=== PATIENT | female | born 1960 | race African-American/Black ===

== ENCOUNTER 2021-02-11 12:56 | Emergency (ER) | payer MEDICAID ==
[~2021-02-11] VITALS: Ht 175.3 cm; Wt 163.3 kg
[2021-02-11 16:35] LABS: Basophils # (auto) 0.1 10 ^3/uL (0-0.2); Eosinophils # (auto) 0.1 10 ^3/uL (0-0.8); Eosinophils % (auto) 1.5 % (0.0-7.0); Hematocrit 45.2 % (36.0-46.0); Lymphocytes # (auto) 1.6 10 ^3/uL (0.4-5.4); Lymphocytes % (auto) 35.6 % (10.0-50.0); Mean Corpuscular Hemoglobin 28.8 pg (28.0-32.0); Mean Corpuscular Hgb Conc. 33.1 g/dL (32.0-36.0); Mean Corpuscular Volume 86.8 fL (80.0-100.0); Monocytes # (auto) 0.4 10 ^3/uL (0-1.3); Monocytes % (auto) 8.7 % (0.0-12.0); Neutrophils # (auto) 2.3 10 ^3/uL (1.6-8.6); Neutrophils % (auto) 52.2 % (37.0-80.0); Nucleated Red Blood Cells % 0.2 %; Red Blood Cells 5.21 10^6/uL (4.0-5.20); Red Cell Distribution Width 14.3 % (11.8-14.3); White Blood Cell 4.4 10^3/uL (4.4-10.8)
[2021-02-11 17:12] LABS: Albumin 3.3 g/dL (3.4-5.0); Calcium 9.6 mg/dL (8.5-10.1); Potassium 3.5 mmol/L (3.5-5.1)
[2021-02-11 17:17] LABS: BUN/Creatinine Ratio 18.4; Bilirubin, Total 0.7 mg/dL (0.2-1.0)
[2021-02-11] MEDS ORDERED: SODIUM CHLORIDE 0.9% 1,000 ML IV ONE (17:30)
[2021-02-11] MEDS ORDERED: KETOROLAC TROMETH 30 MG/ML 1ML VIAL IV ONE (17:30)
[2021-02-11 18:32] LABS: Magnesium 1.9 mg/dL (1.6-2.6); Uric Acid 10.4 mg/dL (2.6-6.0)
[2021-02-11] MEDS ORDERED: COLCHICINE 0.6 MG CAP PO ONE (19:45)
[2021-02-11] MEDS ORDERED: DexAMETHasone SOD PHOS 10MG/1ML VIAL INJ IV ONE (19:45)
[2021-02-11 21:23] VITALS: BP 123/57
== END 2021-02-11 21:45 | disposition home or self-care (01) ==
LOC: EDBD 12:56 → ER 12:56
DX: M10.9 Gout, unspecified (principal); E79.0 Hyperuricemia without signs of inflammatory arthritis and tophaceous disease; E66.01 Morbid (severe) obesity due to excess calories; I10 Essential (primary) hypertension; E11.9 Type 2 diabetes mellitus without complications; E78.5 Hyperlipidemia, unspecified; I48.91 Unspecified atrial fibrillation; F17.210 Nicotine dependence, cigarettes, uncomplicated; Z88.8 Allergy status to other drugs, medicaments and biological substances; Z68.43 Body mass index [BMI] 50.0-59.9, adult
CPT/HCPCS: 36415; 71045; 80053; 83735; 84550; 85025; 93971; 96361; 96374; 96375; 99285; J1100; J1885; J7030

== ENCOUNTER 2021-03-17 11:13 | Emergency (ER) | payer MEDICAID ==
[~2021-03-17] VITALS: Ht 175.3 cm; Wt 163.3 kg
[2021-03-17 11:58] VITALS: BP 117/58
[2021-03-17] MEDS ORDERED: methylPREDNISolone SOD SUCC 125 MG/2 ML VL IM ONE (16:00)
[2021-03-17] MEDS ORDERED: COLCHICINE 0.6 MG CAP PO ONE (16:00)
== END 2021-03-17 16:28 | disposition home or self-care (01) ==
LOC: ER 11:13
DX: M10.9 Gout, unspecified (principal); E66.01 Morbid (severe) obesity due to excess calories; I48.91 Unspecified atrial fibrillation; J45.909 Unspecified asthma, uncomplicated; E11.9 Type 2 diabetes mellitus without complications; E78.5 Hyperlipidemia, unspecified; I10 Essential (primary) hypertension; F17.210 Nicotine dependence, cigarettes, uncomplicated; Z88.8 Allergy status to other drugs, medicaments and biological substances; Z68.43 Body mass index [BMI] 50.0-59.9, adult
CPT/HCPCS: 36415; 84550; 96372; 99283; J2930

== ENCOUNTER 2021-04-26 17:02 | Inpatient (IN) | payer MEDICAID ==
[~2021-04-26] VITALS: Ht 175.3 cm; Wt 170.6 kg
[2021-04-26 18:29] LABS: Basophils # (auto) 0.1 10 ^3/uL (0-0.2); Eosinophils # (auto) 0.1 10 ^3/uL (0-0.8); Eosinophils % (auto) 1.6 % (0.0-7.0); Hematocrit 40.1 % (36.0-46.0); Hemoglobin 12.4 g/dL (12.2-16.2); Lymphocytes # (auto) 1.4 10 ^3/uL (0.4-5.4); Lymphocytes % (auto) 28.4 % (10.0-50.0); Mean Corpuscular Hemoglobin 27.2 pg (28.0-32.0); Mean Corpuscular Volume 87.7 fL (80.0-100.0); Monocytes # (auto) 0.5 10 ^3/uL (0-1.3); Monocytes % (auto) 9.4 % (0.0-12.0); Neutrophils # (auto) 2.8 10 ^3/uL (1.6-8.6); Neutrophils % (auto) 58.6 % (37.0-80.0); Nucleated Red Blood Cells % 0.2 %; Red Blood Cells 4.58 10^6/uL (4.0-5.20); Red Cell Distribution Width 15.8 % (11.8-14.3); White Blood Cell 4.8 10^3/uL (4.4-10.8)
[2021-04-26 18:43] LABS: Albumin 3.2 g/dL (3.4-5.0); Calcium 8.7 mg/dL (8.5-10.1); Potassium 3.7 mmol/L (3.5-5.1)
[2021-04-26 18:50] LABS: BUN/Creatinine Ratio 16.2; Bilirubin, Total 0.4 mg/dL (0.2-1.0); Total Protein 7.5 g/dL (6.4-8.2)
[2021-04-27] MEDS ORDERED: FUROSEMIDE 40 MG/4 ML VIAL IV ONE (02:00)
[2021-04-27 07:34] LABS: Basophils # (auto) 0.1 10 ^3/uL (0-0.2); Basophils % (auto) 1.2 % (0.0-2.0); Eosinophils # (auto) 0.1 10 ^3/uL (0-0.8); Eosinophils % (auto) 1.8 % (0.0-7.0); Hemoglobin 12.4 g/dL (12.2-16.2); Lymphocytes # (auto) 1.1 10 ^3/uL (0.4-5.4); Lymphocytes % (auto) 21.4 % (10.0-50.0); Mean Corpuscular Hemoglobin 27.7 pg (28.0-32.0); Mean Corpuscular Hgb Conc. 31.8 g/dL (32.0-36.0); Monocytes # (auto) 0.6 10 ^3/uL (0-1.3); Monocytes % (auto) 12.4 % (0.0-12.0); Neutrophils # (auto) 3.3 10 ^3/uL (1.6-8.6); Neutrophils % (auto) 63.2 % (37.0-80.0); Nucleated Red Blood Cells % 0.4 %; Red Blood Cells 4.49 10^6/uL (4.0-5.20); Red Cell Distribution Width 16.5 % (11.8-14.3); White Blood Cell 5.2 10^3/uL (4.4-10.8)
[2021-04-27 07:42] LABS: BUN/Creatinine Ratio 16.9; Potassium 3.6 mmol/L (3.5-5.1)
[2021-04-27] MEDS ORDERED: ACETAMINOPHEN 500 MG TAB PO ONE (08:15)
[2021-04-27] MEDS ORDERED: SIMV-8 PO (08:55)
[2021-04-27] MEDS ORDERED: CARV12.544 PO (08:55)
[2021-04-27] MEDS ORDERED: INDO50CA82 PO (08:55)
[2021-04-27] MEDS ORDERED: ALLO100T PO (08:55)
[2021-04-27] MEDS ORDERED: CLOP75TA28 PO (08:55)
[2021-04-27] MEDS: CLOPIDOGREL BISULFATE 75 MG TAB PO SCH (09:06)
[2021-04-27] MEDS: CARVEDILOL 12.5 MG TAB PO SCH ×2 (09:06→21:23)
[2021-04-27] MEDS: LISINOPRIL 10 MG TAB PO SCH (09:06)
[2021-04-27] MEDS: ALLOPURINOL 100 MG TAB PO SCH (09:39)
[2021-04-27] MEDS ORDERED: MORPHINE SULFATE INJECTION 2 MG/ML SYRG IV PRN (10:45)
[2021-04-27] MEDS: AZITHROMYCIN 500MG/ 250ML 250 ML IV SCH (10:45)
[2021-04-27] MEDS ORDERED: ACETAMINOPHEN 325 MG TAB PO PRN (10:45)
[2021-04-27] MEDS ORDERED: ONDANSETRON HCL 4 MG/2 ML VIAL IV PRN (10:45)
[2021-04-27] MEDS: cefTRIAXone 1GM/50ML D5W 50 ML IV SCH (11:11)
[2021-04-27] MEDS: ENOXAPARIN SOD 40 MG/0.4 ML SYRINGE SC SCH (11:13)
[2021-04-27] MEDS ORDERED: FUROSEMIDE 20 MG/2 ML VIAL IV ONE (11:15)
[2021-04-27] MEDS: HYDROcodone-ACET 5/325MG TAB PO PRN (11:22)
[2021-04-27] MEDS ORDERED: hydrALAZINE HCL 20 MG/ML VL IV PRN (11:30)
[2021-04-27 18:41] VITALS: BP 166/97
[2021-04-27 20:00] VITALS: BP 142/76
[2021-04-27 20:30] VITALS: BP 142/76
[2021-04-27] MEDS ORDERED: ATORVASTATIN 20 MG TAB PO SCH (22:00)
[2021-04-28] MEDS ORDERED: PROMETHAZINE W/CODEINE 5 ML ORAL SYRUP PO PRN (01:00)
[2021-04-28 05:38] VITALS: BP 145/74
[2021-04-28 08:50] VITALS: BP 153/81
[2021-04-28 09:52] LABS: Basophils # (auto) 0.1 10 ^3/uL (0-0.2); Basophils % (auto) 1.5 % (0.0-2.0); Eosinophils # (auto) 0.1 10 ^3/uL (0-0.8); Eosinophils % (auto) 2.2 % (0.0-7.0); Hematocrit 37.7 % (36.0-46.0); Hemoglobin 11.9 g/dL (12.2-16.2); Lymphocytes # (auto) 1.2 10 ^3/uL (0.4-5.4); Lymphocytes % (auto) 26.6 % (10.0-50.0); Mean Corpuscular Hemoglobin 27.8 pg (28.0-32.0); Mean Corpuscular Hgb Conc. 31.6 g/dL (32.0-36.0); Mean Corpuscular Volume 87.9 fL (80.0-100.0); Monocytes # (auto) 0.6 10 ^3/uL (0-1.3); Monocytes % (auto) 12.6 % (0.0-12.0); Neutrophils # (auto) 2.6 10 ^3/uL (1.6-8.6); Neutrophils % (auto) 57.1 % (37.0-80.0); Nucleated Red Blood Cells % 0.1 %; Red Blood Cells 4.28 10^6/uL (4.0-5.20); Red Cell Distribution Width 16.3 % (11.8-14.3); White Blood Cell 4.6 10^3/uL (4.4-10.8)
[2021-04-28] MEDS: CARVEDILOL 12.5 MG TAB PO SCH ×2 (10:00→23:17)
[2021-04-28] MEDS: AZITHROMYCIN 500MG/ 250ML 250 ML IV SCH (10:02)
[2021-04-28] MEDS: CLOPIDOGREL BISULFATE 75 MG TAB PO SCH (10:02)
[2021-04-28] MEDS: cefTRIAXone 1GM/50ML D5W 50 ML IV SCH (10:02)
[2021-04-28] MEDS: ALLOPURINOL 100 MG TAB PO SCH ×2 (10:03→23:15)
[2021-04-28] MEDS: LISINOPRIL 10 MG TAB PO SCH (10:03)
[2021-04-28] MEDS: ENOXAPARIN SOD 40 MG/0.4 ML SYRINGE SC SCH (10:03)
[2021-04-28 10:08] LABS: Albumin 3.1 g/dL (3.4-5.0); Calcium 8.5 mg/dL (8.5-10.1); Magnesium 2.5 mg/dL (1.6-2.6); Potassium 3.6 mmol/L (3.5-5.1)
[2021-04-28 10:11] LABS: BUN/Creatinine Ratio 19.7; Bilirubin, Total 0.5 mg/dL (0.2-1.0); Total Protein 6.8 g/dL (6.4-8.2)
[2021-04-28 12:50] VITALS: BP 157/90
[2021-04-28 14:40] VITALS: BP 124/64
[2021-04-28] MEDS ORDERED: FUROSEMIDE 40 MG/4 ML VIAL IV SCH (18:00)
[2021-04-28 20:00] VITALS: BP 147/76
[2021-04-28 22:00] VITALS: BP 147/76
[2021-04-29] MEDS: HYDROcodone-ACET 5/325MG TAB PO PRN ×2 (00:12→11:29)
[2021-04-29 05:00] VITALS: BP 134/91
[2021-04-29] MEDS: ALLOPURINOL 100 MG TAB PO SCH ×2 (06:36→15:07)
[2021-04-29 09:00] VITALS: BP 112/71
[2021-04-29] MEDS: cefTRIAXone 1GM/50ML D5W 50 ML IV SCH (09:28)
[2021-04-29] MEDS: CLOPIDOGREL BISULFATE 75 MG TAB PO SCH (09:29)
[2021-04-29] MEDS: CARVEDILOL 12.5 MG TAB PO SCH (09:29)
[2021-04-29] MEDS: ENOXAPARIN SOD 40 MG/0.4 ML SYRINGE SC SCH (09:30)
[2021-04-29] MEDS: LISINOPRIL 10 MG TAB PO SCH (09:30)
[2021-04-29] MEDS: AZITHROMYCIN 500MG/ 250ML 250 ML IV SCH (12:28)
[2021-04-29 13:00] VITALS: BP 149/97
== END 2021-04-29 17:00 | disposition home or self-care (01) | DRG 139 ==
LOC: ER 17:02 → TELE-WESTW 04-27 04:53
PROVIDERS: ADMIT Nurse Practitioner Family; ATTEND Nurse Practitioner Family
DX: J18.9 Pneumonia, unspecified organism (principal); J96.01 Acute respiratory failure with hypoxia; I50.23 Acute on chronic systolic (congestive) heart failure; I42.9 Cardiomyopathy, unspecified; Z68.43 Body mass index [BMI] 50.0-59.9, adult; E66.2 Morbid (severe) obesity with alveolar hypoventilation; J44.0 Chronic obstructive pulmonary disease with (acute) lower respiratory infection; I11.0 Hypertensive heart disease with heart failure; E11.9 Type 2 diabetes mellitus without complications; E04.1 Nontoxic single thyroid nodule; E78.5 Hyperlipidemia, unspecified; F17.210 Nicotine dependence, cigarettes, uncomplicated; H54.62 Unqualified visual loss, left eye, normal vision right eye; I48.91 Unspecified atrial fibrillation; M10.9 Gout, unspecified; Z20.822 Contact with and (suspected) exposure to COVID-19; Z79.899 Other long term (current) drug therapy; Z86.16 Personal history of COVID-19; Z91.19 Patient's noncompliance with other medical treatment and regimen; Z71.6 Tobacco abuse counseling
CPT/HCPCS: 36415; 71045; 71250; 80048; 80053; 83735; 83880; 84484; 85025; 87426; 93005; 93306; 96365; 96368; 96372; 96375; 96376; G0378; J0696; J2405

== ENCOUNTER 2021-05-12 12:14 | Inpatient (IN) | payer MEDICAID ==
[~2021-05-12] VITALS: Ht 175.3 cm; Wt 163.9 kg
[~2021-05-12 12:14] MED LIST: ALLO100T PO; CARV12.544 PO; CLOP75TA28 PO; INDO50CA82 PO; SIMV-8 PO
[2021-05-12 14:05] LABS: Basophils # (auto) 0.1 10 ^3/uL (0-0.2); Basophils % (auto) 1.5 % (0.0-2.0); Eosinophils # (auto) 0.1 10 ^3/uL (0-0.8); Eosinophils % (auto) 2.3 % (0.0-7.0); Hematocrit 41.1 % (36.0-46.0); Lymphocytes # (auto) 1.3 10 ^3/uL (0.4-5.4); Lymphocytes % (auto) 27.7 % (10.0-50.0); Mean Corpuscular Hemoglobin 27.8 pg (28.0-32.0); Mean Corpuscular Hgb Conc. 31.6 g/dL (32.0-36.0); Mean Corpuscular Volume 87.9 fL (80.0-100.0); Monocytes # (auto) 0.5 10 ^3/uL (0-1.3); Neutrophils # (auto) 2.8 10 ^3/uL (1.6-8.6); Neutrophils % (auto) 57.5 % (37.0-80.0); Nucleated Red Blood Cells % 0.1 %; Red Blood Cells 4.68 10^6/uL (4.0-5.20); Red Cell Distribution Width 17.2 % (11.8-14.3); White Blood Cell 4.8 10^3/uL (4.4-10.8)
[2021-05-12 14:23] LABS: Albumin 3.3 g/dL (3.4-5.0); Calcium 8.6 mg/dL (8.5-10.1); Potassium 3.9 mmol/L (3.5-5.1)
[2021-05-12 14:31] LABS: BUN/Creatinine Ratio 16.9; Bilirubin, Total 0.5 mg/dL (0.2-1.0); CRP High Sensitivity 1.18 mg/dL (< 0.3); Total Protein 7.3 g/dL (6.4-8.2)
[2021-05-12] MEDS ORDERED: FUROSEMIDE 40 MG/4 ML VIAL IV ONE (16:30)
[2021-05-12] MEDS ORDERED: MORPHINE SULFATE INJECTION 2 MG/ML SYRG IV PRN (17:15)
[2021-05-12] MEDS ORDERED: NITROGLYCERIN 0.4 MG SL TAB SL PRN (17:15)
[2021-05-12] MEDS ORDERED: CARVEDILOL 12.5 MG TAB PO ONE (22:15)
[2021-05-12] MEDS ORDERED: ALLOPURINOL 100 MG TAB PO ONE (22:15)
[2021-05-12] MEDS ORDERED: LISINOPRIL 10 MG TAB PO ONE (22:15)
[2021-05-12] MEDS ORDERED: INDOMETHACIN 25 MG CAP PO ONE (22:15)
[2021-05-12] MEDS ORDERED: ONDANSETRON HCL 4 MG/2 ML VIAL ONE (22:35)
[2021-05-12] MEDS ORDERED: ONDANSETRON HCL 4 MG/2 ML VIAL IV ONE (23:00)
[2021-05-13] MEDS ORDERED: cefTRIAXone 1GM/50ML D5W 50 ML IV ONE (04:00)
[2021-05-13] MEDS ORDERED: FAMOTIDINE (10MG/ML) 2ML VL IV ONE (04:00)
[2021-05-13] MEDS ORDERED: FUROSEMIDE 40 MG/4 ML VIAL IV ONE (04:00)
[2021-05-13] MEDS ORDERED: BUDESONIDE (INHALATION) 0.5 MG/2 ML NEB NEB ONE (04:00)
[2021-05-13] MEDS ORDERED: IPRATROPIUM BROM 0.5 MG/2.5ML INH SOL NEB ONE (04:00)
[2021-05-13] MEDS ORDERED: AZITHROMYCIN 500MG/ 250ML 250 ML IV ONE (04:00)
[2021-05-13] MEDS ORDERED: METOPROLOL SUCCINATE XL 50 MG TAB PO ONE (04:00)
[2021-05-13] MEDS ORDERED: hydrALAZINE HCL 20 MG/ML VL IV PRN (04:00)
[2021-05-13] MEDS ORDERED: BENAZEPRIL HCL 10 MG TAB PO ONE (04:00)
[2021-05-13] MEDS ORDERED: ALBUTEROL SULF 2.5 MG/0.5ML(0.5%) NEB SOLN NEB ONE (04:00)
[2021-05-13] MEDS ORDERED: MORPHINE SULFATE INJECTION 2 MG/ML SYRG IV PRN (04:15)
[2021-05-13] MEDS ORDERED: DOCUSATE SOD 100 MG CAP PO PRN (04:15)
[2021-05-13] MEDS ORDERED: LORazepam 0.5 MG TAB PO PRN (04:15)
[2021-05-13] MEDS ORDERED: ONDANSETRON HCL 4 MG/2 ML VIAL IV PRN (04:15)
[2021-05-13] MEDS ORDERED: NITROGLYCERIN 0.4 MG SL TAB SL PRN (04:15)
[2021-05-13] MEDS: methylPREDNISolone SOD SUCC 40 MG/ML VL IV SCH ×3 (06:26→23:32)
[2021-05-13] MEDS: IPRATROPIUM BROM 0.5 MG/2.5ML INH SOL NEB SCH ×4 (10:00→23:22)
[2021-05-13 10:46] LABS: Basophils # (auto) 0.1 10 ^3/uL (0-0.2); Eosinophils # (auto) 0 10 ^3/uL (0-0.8); Eosinophils % (auto) 0.7 % (0.0-7.0); Hematocrit 42.4 % (36.0-46.0); Hemoglobin 13.6 g/dL (12.2-16.2); Lymphocytes # (auto) 0.9 10 ^3/uL (0.4-5.4); Lymphocytes % (auto) 17.4 % (10.0-50.0); Mean Corpuscular Hemoglobin 28.2 pg (28.0-32.0); Mean Corpuscular Volume 88.2 fL (80.0-100.0); Monocytes # (auto) 0.2 10 ^3/uL (0-1.3); Monocytes % (auto) 3.9 % (0.0-12.0); Neutrophils # (auto) 4.2 10 ^3/uL (1.6-8.6); Nucleated Red Blood Cells % 0.1 %; Red Cell Distribution Width 17.8 % (11.8-14.3); White Blood Cell 5.5 10^3/uL (4.4-10.8)
[2021-05-13] MEDS: BUDESONIDE (INHALATION) 0.5 MG/2 ML NEB NEB SCH ×2 (10:52→18:33)
[2021-05-13 11:06] LABS: Albumin 3.6 g/dL (3.4-5.0); Calcium 8.9 mg/dL (8.5-10.1); Magnesium 2.7 mg/dL (1.6-2.6); Potassium 4.5 mmol/L (3.5-5.1)
[2021-05-13 11:10] LABS: BUN/Creatinine Ratio 19.3; Bilirubin, Total 0.5 mg/dL (0.2-1.0); Phosphorus 4.3 mg/dL (2.5-4.90); Total Protein 7.9 g/dL (6.4-8.2)
[2021-05-13] MEDS: POTASSIUM CHL 20 Meq TABLET PO SCH ×2 (14:19→23:33)
[2021-05-13] MEDS: ALLOPURINOL 100 MG TAB PO SCH (14:19)
[2021-05-13] MEDS: ASPirin 81 mg TAB PO SCH (14:20)
[2021-05-13] MEDS: ENOXAPARIN SOD 40 MG/0.4 ML SYRINGE SC SCH (14:21)
[2021-05-13 15:00] VITALS: BP 145/106
[2021-05-13 17:22] VITALS: BP 145/106
[2021-05-13] MEDS: FUROSEMIDE 40 MG/4 ML VIAL IV SCH (18:00)
[2021-05-13 20:00] VITALS: BP 107/107
[2021-05-13] MEDS ORDERED: CHOL20007 PO (21:06)
[2021-05-13] MEDS ORDERED: ALBU2SYP10 PO (21:06)
[2021-05-13] MEDS ORDERED: HYDR-4798 PO (21:06)
[2021-05-13 22:00] VITALS: BP 107/68
[2021-05-13] MEDS: FAMOTIDINE (10MG/ML) 2ML VL IV SCH (23:32)
[2021-05-13] MEDS: SIMVASTATIN 20 MG PO SCH (23:33)
[2021-05-14] MEDS: IPRATROPIUM BROM 0.5 MG/2.5ML INH SOL NEB SCH ×6 (02:51→22:47)
[2021-05-14 05:00] VITALS: BP 166/100
[2021-05-14] MEDS: ALBUTEROL SULF 2.5 MG/0.5ML(0.5%) NEB SOLN NEB PRN ×3 (05:46→22:47)
[2021-05-14] MEDS: BUDESONIDE (INHALATION) 0.5 MG/2 ML NEB NEB SCH ×2 (05:47→18:55)
[2021-05-14] MEDS: methylPREDNISolone SOD SUCC 40 MG/ML VL IV SCH ×2 (06:45→23:46)
[2021-05-14] MEDS: FUROSEMIDE 40 MG/4 ML VIAL IV SCH ×2 (06:45→18:00)
[2021-05-14 08:00] VITALS: BP 107/107
[2021-05-14] MEDS: cefTRIAXone 1GM/50ML D5W 50 ML IV SCH (09:00)
[2021-05-14 09:10] VITALS: BP 159/106
[2021-05-14] MEDS ORDERED: METOPROLOL SUCCINATE XL 50 MG TAB PO SCH (10:00)
[2021-05-14] MEDS ORDERED: BENAZEPRIL HCL 10 MG TAB PO SCH (10:00)
[2021-05-14] MEDS: FAMOTIDINE (10MG/ML) 2ML VL IV SCH ×2 (10:00→23:45)
[2021-05-14] MEDS ORDERED: AZITHROMYCIN 500MG/ 250ML 250 ML IV SCH (10:00)
[2021-05-14] MEDS: ENOXAPARIN SOD 40 MG/0.4 ML SYRINGE SC SCH (10:00)
[2021-05-14] MEDS: ASPirin 81 mg TAB PO SCH (10:00)
[2021-05-14] MEDS: ALLOPURINOL 100 MG TAB PO SCH (10:00)
[2021-05-14] MEDS ORDERED: guaiFENesin-DM 100/10mg/5ml SYR PO PRN (12:30)
[2021-05-14 13:15] VITALS: BP 139/75
[2021-05-14 13:48] LABS: Urine Bacteria NONE SEEN /hpf (None Seen); Urine Blood 2+ /uL (Negative); Urine Hyaline Cast FEW /lpf (0 - 2); Urine Specific Gravity 1.011 (1.001-1.035); Urine WBC 1 /hpf (0 - 5)
[2021-05-14 14:03] LABS: Amphetamine Screen, Urine NEGATIVE (NEGATIVE); Barbiturate Scree,Urine NEGATIVE (NEGATIVE); Benzodiazephine Screen, Urine NEGATIVE (NEGATIVE); Cannabinoid Screen, Urine NEGATIVE (NEGATIVE); Cocaine Screen, Urine NEGATIVE (NEGATIVE); Opiate Scree,Urine NEGATIVE (NEGATIVE); Phencyclidine Screen, Urine NEGATIVE (NEGATIVE)
[2021-05-14] MEDS ORDERED: IOHEXOL 350 MG/ML 100ML IJ ONE (15:11)
[2021-05-14 20:00] VITALS: BP 120/76
[2021-05-14 22:00] VITALS: BP 120/76
[2021-05-14] MEDS: SIMVASTATIN 20 MG PO SCH (22:00)
[2021-05-14] MEDS: CARVEDILOL 12.5 MG TAB PO SCH (23:47)
[2021-05-15] MEDS: ALUM & MAG HYDROX-SIMETH LIQ(MAALOX) 30 ML PO PRN (00:28)
[2021-05-15] MEDS: IPRATROPIUM BROM 0.5 MG/2.5ML INH SOL NEB SCH ×4 (02:47→15:14)
[2021-05-15] MEDS: ALBUTEROL SULF 2.5 MG/0.5ML(0.5%) NEB SOLN NEB PRN ×2 (02:47→21:52)
[2021-05-15 04:51] VITALS: BP 161/99
[2021-05-15 07:05] LABS: Calcium 9.2 mg/dL (8.5-10.1); Potassium 4.8 mmol/L (3.5-5.1)
[2021-05-15 07:09] LABS: BUN/Creatinine Ratio 29.9; Magnesium 2.8 mg/dL (1.6-2.6)
[2021-05-15] MEDS: FUROSEMIDE 40 MG/4 ML VIAL IV SCH (07:10)
[2021-05-15 07:15] LABS: Basophils # (auto) 0 10 ^3/uL (0-0.2); Basophils % (auto) 0.3 % (0.0-2.0); Eosinophils # (auto) 0 10 ^3/uL (0-0.8); Hemoglobin 13.1 g/dL (12.2-16.2); Lymphocytes # (auto) 0.9 10 ^3/uL (0.4-5.4); Lymphocytes % (auto) 8.6 % (10.0-50.0); Mean Corpuscular Hgb Conc. 31.3 g/dL (32.0-36.0); Mean Corpuscular Volume 89.5 fL (80.0-100.0); Monocytes # (auto) 0.2 10 ^3/uL (0-1.3); Monocytes % (auto) 2.1 % (0.0-12.0); Neutrophils # (auto) 9.6 10 ^3/uL (1.6-8.6); Red Blood Cells 4.69 10^6/uL (4.0-5.20); Red Cell Distribution Width 18.2 % (11.8-14.3); White Blood Cell 10.7 10^3/uL (4.4-10.8)
[2021-05-15] MEDS: BUDESONIDE (INHALATION) 0.5 MG/2 ML NEB NEB SCH ×2 (07:50→21:52)
[2021-05-15 09:00] VITALS: BP 132/74
[2021-05-15] MEDS: cefTRIAXone 1GM/50ML D5W 50 ML IV SCH (09:28)
[2021-05-15] MEDS: ENOXAPARIN SOD 40 MG/0.4 ML SYRINGE SC SCH (09:29)
[2021-05-15] MEDS: ASPirin 81 mg TAB PO SCH (09:30)
[2021-05-15] MEDS: ALLOPURINOL 100 MG TAB PO SCH (09:31)
[2021-05-15] MEDS: CARVEDILOL 12.5 MG TAB PO SCH ×2 (09:31→21:23)
[2021-05-15] MEDS: methylPREDNISolone SOD SUCC 40 MG/ML VL IV SCH (09:32)
[2021-05-15] MEDS: FAMOTIDINE (10MG/ML) 2ML VL IV SCH ×2 (09:32→21:23)
[2021-05-15] MEDS ORDERED: AZITHROMYCIN 250 MG TAB PO SCH (10:00)
[2021-05-15] MEDS ORDERED: POTASSIUM CHL 20 Meq TABLET PO SCH (10:00)
[2021-05-15 13:00] VITALS: BP 125/69
[2021-05-15 16:59] VITALS: BP 149/85
[2021-05-15] MEDS: HYDROcodone-ACET 5/325MG TAB PO PRN (17:14)
[2021-05-15 20:00] VITALS: BP 151/69
[2021-05-15 21:08] VITALS: BP 151/69
[2021-05-15] MEDS: SIMVASTATIN 20 MG PO SCH (21:23)
[2021-05-15] MEDS: SACUBITRIL-VALSARTAN 24mg/26mg TAB PO SCH (21:24)
[2021-05-16] VITALS (7 sets, daily range): BP systolic 132–159; BP diastolic 66–101
[2021-05-16] MEDS: CARVEDILOL 12.5 MG TAB PO SCH ×2 (09:03→22:19)
[2021-05-16] MEDS: FAMOTIDINE (10MG/ML) 2ML VL IV SCH ×2 (09:04→22:20)
[2021-05-16] MEDS: AZITHROMYCIN 250 MG TAB PO SCH (09:04)
[2021-05-16] MEDS: ASPirin 81 mg TAB PO SCH (09:04)
[2021-05-16] MEDS: predniSONE 20 MG TAB PO SCH (09:04)
[2021-05-16] MEDS: FUROSEMIDE 40 MG/4 ML VIAL IV SCH (09:04)
[2021-05-16] MEDS: ENOXAPARIN SOD 40 MG/0.4 ML SYRINGE SC SCH (09:05)
[2021-05-16] MEDS: ALLOPURINOL 100 MG TAB PO SCH (09:05)
[2021-05-16] MEDS: SACUBITRIL-VALSARTAN 24mg/26mg TAB PO SCH ×2 (10:00→22:20)
[2021-05-16] MEDS: BUDESONIDE (INHALATION) 0.5 MG/2 ML NEB NEB SCH ×2 (11:00→19:33)
[2021-05-16] MEDS: IPRATROPIUM BROM 0.5 MG/2.5ML INH SOL NEB PRN (19:33)
[2021-05-16] MEDS: ALBUTEROL SULF 2.5 MG/0.5ML(0.5%) NEB SOLN NEB PRN (19:33)
[2021-05-16] MEDS: SIMVASTATIN 20 MG PO SCH (22:00)
[2021-05-17 05:00] VITALS: BP 162/97
[2021-05-17] MEDS: ALBUTEROL SULF 2.5 MG/0.5ML(0.5%) NEB SOLN NEB PRN ×2 (06:13→21:42)
[2021-05-17] MEDS: IPRATROPIUM BROM 0.5 MG/2.5ML INH SOL NEB PRN (06:13)
[2021-05-17] MEDS: BUDESONIDE (INHALATION) 0.5 MG/2 ML NEB NEB SCH ×2 (06:14→21:42)
[2021-05-17 08:00] VITALS: BP 144/97
[2021-05-17 09:00] VITALS: BP 144/97
[2021-05-17] MEDS: predniSONE 20 MG TAB PO SCH (09:56)
[2021-05-17] MEDS: FUROSEMIDE 40 MG/4 ML VIAL IV SCH (09:56)
[2021-05-17] MEDS: FAMOTIDINE (10MG/ML) 2ML VL IV SCH ×2 (09:56→21:54)
[2021-05-17] MEDS: ASPirin 81 mg TAB PO SCH (09:56)
[2021-05-17] MEDS: ENOXAPARIN SOD 40 MG/0.4 ML SYRINGE SC SCH (09:57)
[2021-05-17] MEDS: AZITHROMYCIN 250 MG TAB PO SCH (09:57)
[2021-05-17] MEDS: SACUBITRIL-VALSARTAN 24mg/26mg TAB PO SCH ×2 (09:57→21:56)
[2021-05-17] MEDS: ALLOPURINOL 100 MG TAB PO SCH (09:57)
[2021-05-17] MEDS: CARVEDILOL 12.5 MG TAB PO SCH ×2 (09:57→21:56)
[2021-05-17 13:00] VITALS: BP 145/114
[2021-05-17 17:00] VITALS: BP 137/76
[2021-05-17 22:00] VITALS: BP 139/91
[2021-05-17] MEDS: SIMVASTATIN 20 MG PO SCH (22:00)
[2021-05-18 05:00] VITALS: BP 153/91
[2021-05-18] MEDS ORDERED: REGADENOSON 0.4 MG/5 ML SYRG IV ONE (08:15)
[2021-05-18 08:52] VITALS: BP 165/105
[2021-05-18 09:01] VITALS: BP 134/80
[2021-05-18] MEDS: FUROSEMIDE 40 MG/4 ML VIAL IV SCH (09:11)
[2021-05-18] MEDS: FAMOTIDINE (10MG/ML) 2ML VL IV SCH ×2 (09:11→23:14)
[2021-05-18] MEDS: ENOXAPARIN SOD 40 MG/0.4 ML SYRINGE SC SCH (09:14)
[2021-05-18] MEDS: ASPirin 81 mg TAB PO SCH (09:14)
[2021-05-18] MEDS: CARVEDILOL 12.5 MG TAB PO SCH ×2 (09:15→23:19)
[2021-05-18] MEDS: ALLOPURINOL 100 MG TAB PO SCH (09:15)
[2021-05-18] MEDS: predniSONE 20 MG TAB PO SCH (09:15)
[2021-05-18] MEDS: ALBUTEROL SULF 2.5 MG/0.5ML(0.5%) NEB SOLN NEB PRN ×2 (11:09→19:46)
[2021-05-18] MEDS: BUDESONIDE (INHALATION) 0.5 MG/2 ML NEB NEB SCH ×2 (11:09→19:45)
[2021-05-18] MEDS: SACUBITRIL-VALSARTAN 24mg/26mg TAB PO SCH ×2 (11:52→23:14)
[2021-05-18] MEDS: AZITHROMYCIN 250 MG TAB PO SCH (11:52)
[2021-05-18] MEDS: IPRATROPIUM BROM 0.5 MG/2.5ML INH SOL NEB PRN (19:45)
[2021-05-18 22:00] VITALS: BP 138/81
[2021-05-18] MEDS: SIMVASTATIN 20 MG PO SCH (22:00)
[2021-05-19 05:00] VITALS: BP 143/88
[2021-05-19 06:40] LABS: Calcium 8.9 mg/dL (8.5-10.1)
[2021-05-19 06:54] LABS: BUN/Creatinine Ratio 30.6
[2021-05-19 09:00] VITALS: BP 139/78
[2021-05-19] MEDS: FUROSEMIDE 40 MG/4 ML VIAL IV SCH (09:44)
[2021-05-19] MEDS: FAMOTIDINE (10MG/ML) 2ML VL IV SCH ×2 (09:44→22:07)
[2021-05-19] MEDS: ENOXAPARIN SOD 40 MG/0.4 ML SYRINGE SC SCH (09:45)
[2021-05-19] MEDS: predniSONE 20 MG TAB PO SCH (09:45)
[2021-05-19] MEDS: ALLOPURINOL 100 MG TAB PO SCH (09:45)
[2021-05-19] MEDS: ASPirin 81 mg TAB PO SCH (09:45)
[2021-05-19] MEDS: SACUBITRIL-VALSARTAN 24mg/26mg TAB PO SCH ×2 (09:45→22:07)
[2021-05-19] MEDS: AZITHROMYCIN 250 MG TAB PO SCH (09:46)
[2021-05-19] MEDS: CARVEDILOL 12.5 MG TAB PO SCH ×2 (09:46→22:07)
[2021-05-19] MEDS: BUDESONIDE (INHALATION) 0.5 MG/2 ML NEB NEB SCH ×2 (10:00→19:23)
[2021-05-19 12:50] VITALS: BP 131/95
[2021-05-19 17:30] VITALS: BP 115/74
[2021-05-19] MEDS: ALBUTEROL SULF 2.5 MG/0.5ML(0.5%) NEB SOLN NEB PRN (19:23)
[2021-05-19] MEDS: IPRATROPIUM BROM 0.5 MG/2.5ML INH SOL NEB PRN (19:23)
[2021-05-19 22:00] VITALS: BP 149/84
[2021-05-19] MEDS: SIMVASTATIN 20 MG PO SCH (22:00)
[2021-05-20 05:47] VITALS: BP 151/89
[2021-05-20 07:06] LABS: Basophils # (auto) 0.1 10 ^3/uL (0-0.2); Basophils % (auto) 1.2 % (0.0-2.0); Eosinophils # (auto) 0 10 ^3/uL (0-0.8); Eosinophils % (auto) 0.3 % (0.0-7.0); Hematocrit 43.8 % (36.0-46.0); Hemoglobin 14.4 g/dL (12.2-16.2); Lymphocytes % (auto) 28.9 % (10.0-50.0); Mean Corpuscular Hemoglobin 28.7 pg (28.0-32.0); Monocytes # (auto) 0.7 10 ^3/uL (0-1.3); Neutrophils # (auto) 4.1 10 ^3/uL (1.6-8.6); Neutrophils % (auto) 59.6 % (37.0-80.0); Nucleated Red Blood Cells % 0.8 %; Red Blood Cells 5.03 10^6/uL (4.0-5.20); Red Cell Distribution Width 17.4 % (11.8-14.3); White Blood Cell 6.8 10^3/uL (4.4-10.8)
[2021-05-20 07:16] LABS: INR 1.16 (0.9-1.15); Partial Thromboplastin Time 26.8 sec (23.6-33.0)
[2021-05-20 09:00] VITALS: BP 145/93
[2021-05-20] MEDS: ALBUTEROL SULF 2.5 MG/0.5ML(0.5%) NEB SOLN NEB PRN ×2 (09:36→17:45)
[2021-05-20] MEDS: BUDESONIDE (INHALATION) 0.5 MG/2 ML NEB NEB SCH ×2 (09:36→17:46)
[2021-05-20] MEDS: FAMOTIDINE (10MG/ML) 2ML VL IV SCH ×2 (09:51→21:38)
[2021-05-20] MEDS: FUROSEMIDE 40 MG/4 ML VIAL IV SCH (09:51)
[2021-05-20] MEDS: ENOXAPARIN SOD 40 MG/0.4 ML SYRINGE SC SCH (09:51)
[2021-05-20] MEDS: CARVEDILOL 12.5 MG TAB PO SCH ×2 (09:53→21:37)
[2021-05-20] MEDS: predniSONE 20 MG TAB PO SCH (09:53)
[2021-05-20] MEDS: ASPirin 81 mg TAB PO SCH (09:53)
[2021-05-20] MEDS: SACUBITRIL-VALSARTAN 24mg/26mg TAB PO SCH ×2 (09:53→21:36)
[2021-05-20] MEDS: ALLOPURINOL 100 MG TAB PO SCH (09:53)
[2021-05-20 13:00] VITALS: BP 113/89
[2021-05-20 17:00] VITALS: BP 131/84
[2021-05-20 17:22] LABS: Anion Gap 9 (5-15); BUN/Creatinine Ratio 28.2; Blood Urea Nitrogen 24 mg/dL (7-18); Calcium 9.3 mg/dL (8.5-10.1); Carbon Dioxide 28 mmol/L (21-32); Chloride 103 mmol/L (98-107); GFR African American 88 mL/min; GFR Non-African American 73 mL/min; Glucose 129 mg/dL (74-106); Potassium 4.1 mmol/L (3.5-5.1); Sodium 140 mmol/L (136-145)
[2021-05-20] MEDS: IPRATROPIUM BROM 0.5 MG/2.5ML INH SOL NEB PRN (17:45)
[2021-05-20] MEDS: SIMVASTATIN 20 MG PO SCH (21:38)
[2021-05-20 22:00] VITALS: BP 136/80
[2021-05-21 05:00] VITALS: BP 141/81
[2021-05-21] MEDS: ALUM & MAG HYDROX-SIMETH LIQ(MAALOX) 30 ML PO PRN (05:53)
[2021-05-21 08:48] VITALS: BP 142/82
[2021-05-21] MEDS: BUDESONIDE (INHALATION) 0.5 MG/2 ML NEB NEB SCH ×2 (09:08→22:27)
[2021-05-21] MEDS: FUROSEMIDE 40 MG/4 ML VIAL IV SCH (10:00)
[2021-05-21] MEDS: ASPirin 81 mg TAB PO SCH (10:00)
[2021-05-21] MEDS: ENOXAPARIN SOD 40 MG/0.4 ML SYRINGE SC SCH (10:00)
[2021-05-21] MEDS: ALLOPURINOL 100 MG TAB PO SCH (10:00)
[2021-05-21] MEDS: SACUBITRIL-VALSARTAN 24mg/26mg TAB PO SCH ×2 (10:00→21:32)
[2021-05-21] MEDS: FAMOTIDINE (10MG/ML) 2ML VL IV SCH ×2 (10:00→21:32)
[2021-05-21] MEDS: CARVEDILOL 12.5 MG TAB PO SCH ×2 (10:14→21:32)
[2021-05-21 13:00] VITALS: BP 115/76
[2021-05-21 17:00] VITALS: BP 113/65
[2021-05-21 22:00] VITALS: BP 123/86
[2021-05-21] MEDS: SIMVASTATIN 20 MG PO SCH (22:00)
[2021-05-22 05:00] VITALS: BP 135/88
[2021-05-22] MEDS: IPRATROPIUM BROM 0.5 MG/2.5ML INH SOL NEB PRN ×2 (06:06→23:20)
[2021-05-22 09:00] VITALS: BP 144/91
[2021-05-22 10:00] LABS: Basophils # (auto) 0.1 10 ^3/uL (0-0.2); Basophils % (auto) 1.3 % (0.0-2.0); Eosinophils # (auto) 0.1 10 ^3/uL (0-0.8); Eosinophils % (auto) 1.4 % (0.0-7.0); Hematocrit 46.5 % (36.0-46.0); Hemoglobin 14.9 g/dL (12.2-16.2); Lymphocytes # (auto) 1.7 10 ^3/uL (0.4-5.4); Lymphocytes % (auto) 37.6 % (10.0-50.0); Mean Corpuscular Hemoglobin 27.9 pg (28.0-32.0); Mean Corpuscular Volume 87.2 fL (80.0-100.0); Monocytes # (auto) 0.5 10 ^3/uL (0-1.3); Monocytes % (auto) 11.6 % (0.0-12.0); Neutrophils # (auto) 2.2 10 ^3/uL (1.6-8.6); Neutrophils % (auto) 48.1 % (37.0-80.0); Nucleated Red Blood Cells % 0.2 %; Red Blood Cells 5.33 10^6/uL (4.0-5.20); Red Cell Distribution Width 17.2 % (11.8-14.3); White Blood Cell 4.6 10^3/uL (4.4-10.8)
[2021-05-22] MEDS: BUDESONIDE (INHALATION) 0.5 MG/2 ML NEB NEB SCH ×2 (10:00→23:20)
[2021-05-22] MEDS: ASPirin 81 mg TAB PO SCH (10:00)
[2021-05-22] MEDS: ENOXAPARIN SOD 40 MG/0.4 ML SYRINGE SC SCH (10:00)
[2021-05-22 10:11] LABS: Calcium 9.2 mg/dL (8.5-10.1); Potassium 4.2 mmol/L (3.5-5.1)
[2021-05-22 10:12] LABS: BUN/Creatinine Ratio 27.8; INR 1.16 (0.9-1.15); Partial Thromboplastin Time 28.4 sec (23.6-33.0)
[2021-05-22] MEDS: CARVEDILOL 12.5 MG TAB PO SCH ×2 (10:33→22:27)
[2021-05-22] MEDS: FUROSEMIDE 40 MG/4 ML VIAL IV SCH (10:36)
[2021-05-22] MEDS: FAMOTIDINE (10MG/ML) 2ML VL IV SCH ×2 (10:36→22:25)
[2021-05-22] MEDS: ALLOPURINOL 100 MG TAB PO SCH (10:37)
[2021-05-22] MEDS: SACUBITRIL-VALSARTAN 24mg/26mg TAB PO SCH ×2 (10:40→22:28)
[2021-05-22 13:00] VITALS: BP 132/59
[2021-05-22 17:00] VITALS: BP 107/62
[2021-05-22] MEDS: ALUM & MAG HYDROX-SIMETH LIQ(MAALOX) 30 ML PO PRN (18:44)
[2021-05-22 22:00] VITALS: BP 100/65
[2021-05-22] MEDS: SIMVASTATIN 20 MG PO SCH (22:00)
[2021-05-22] MEDS: MORPHINE SULFATE INJECTION 2 MG/ML SYRG IV PRN (22:32)
[2021-05-22] MEDS: ALBUTEROL SULF 2.5 MG/0.5ML(0.5%) NEB SOLN NEB PRN (23:20)
[2021-05-23] MEDS: MORPHINE SULFATE INJECTION 2 MG/ML SYRG IV PRN ×2 (00:38→10:36)
[2021-05-23 05:40] LABS: BUN/Creatinine Ratio 26.5; Calcium 9.1 mg/dL (8.5-10.1); Potassium 4.1 mmol/L (3.5-5.1)
[2021-05-23 09:00] VITALS: BP 122/76
[2021-05-23] MEDS: ALBUTEROL SULF 2.5 MG/0.5ML(0.5%) NEB SOLN NEB PRN ×2 (09:17→22:48)
[2021-05-23] MEDS: IPRATROPIUM BROM 0.5 MG/2.5ML INH SOL NEB PRN (09:17)
[2021-05-23] MEDS: BUDESONIDE (INHALATION) 0.5 MG/2 ML NEB NEB SCH ×2 (09:17→22:48)
[2021-05-23] MEDS: FUROSEMIDE 40 MG/4 ML VIAL IV SCH (10:33)
[2021-05-23] MEDS: ASPirin 81 mg TAB PO SCH (10:34)
[2021-05-23] MEDS: FAMOTIDINE (10MG/ML) 2ML VL IV SCH ×2 (10:34→22:39)
[2021-05-23] MEDS: ENOXAPARIN SOD 40 MG/0.4 ML SYRINGE SC SCH (10:35)
[2021-05-23] MEDS: ALLOPURINOL 100 MG TAB PO SCH (10:35)
[2021-05-23] MEDS: CARVEDILOL 12.5 MG TAB PO SCH ×2 (10:35→22:43)
[2021-05-23] MEDS: SACUBITRIL-VALSARTAN 24mg/26mg TAB PO SCH ×2 (10:35→22:43)
[2021-05-23 13:00] VITALS: BP 108/58
[2021-05-23 17:00] VITALS: BP 133/72
[2021-05-23 22:00] VITALS: BP 129/68
[2021-05-23] MEDS: SIMVASTATIN 20 MG PO SCH (22:40)
[2021-05-23] MEDS: HYDROcodone-ACET 5/325MG TAB PO PRN (22:52)
[2021-05-24 05:00] VITALS: BP 130/77
[2021-05-24] MEDS: MORPHINE SULFATE INJECTION 2 MG/ML SYRG IV PRN ×2 (06:11→15:24)
[2021-05-24] MEDS: ALLOPURINOL 100 MG TAB PO SCH (07:39)
[2021-05-24 09:00] VITALS: BP 95/72
[2021-05-24 10:00] VITALS: BP 117/42
[2021-05-24] MEDS: IPRATROPIUM BROM 0.5 MG/2.5ML INH SOL NEB PRN ×2 (10:26→22:34)
[2021-05-24] MEDS: BUDESONIDE (INHALATION) 0.5 MG/2 ML NEB NEB SCH ×2 (10:27→22:34)
[2021-05-24] MEDS: FUROSEMIDE 40 MG/4 ML VIAL IV SCH (10:37)
[2021-05-24] MEDS: FAMOTIDINE (10MG/ML) 2ML VL IV SCH ×2 (10:38→21:31)
[2021-05-24] MEDS: ASPirin 81 mg TAB PO SCH (10:38)
[2021-05-24] MEDS: INDOMETHACIN 25 MG CAP PO SCH ×2 (10:39→21:35)
[2021-05-24] MEDS: CARVEDILOL 12.5 MG TAB PO SCH ×2 (10:39→21:33)
[2021-05-24] MEDS: SACUBITRIL-VALSARTAN 24mg/26mg TAB PO SCH ×2 (10:39→21:34)
[2021-05-24] MEDS: ENOXAPARIN SOD 40 MG/0.4 ML SYRINGE SC SCH (10:40)
[2021-05-24 17:00] VITALS: BP 101/51
[2021-05-24] MEDS: HYDROcodone-ACET 5/325MG TAB PO PRN (21:36)
[2021-05-24] MEDS: SIMVASTATIN 20 MG PO SCH (21:37)
[2021-05-24 22:00] VITALS: BP 116/76
[2021-05-24] MEDS: ALBUTEROL SULF 2.5 MG/0.5ML(0.5%) NEB SOLN NEB PRN (22:34)
[2021-05-25 05:00] VITALS: BP 111/70
[2021-05-25] MEDS: SACUBITRIL-VALSARTAN 24mg/26mg TAB PO SCH (08:39)
[2021-05-25] MEDS: INDOMETHACIN 25 MG CAP PO SCH (08:40)
[2021-05-25] MEDS: ENOXAPARIN SOD 40 MG/0.4 ML SYRINGE SC SCH (08:40)
[2021-05-25] MEDS: ASPirin 81 mg TAB PO SCH (08:40)
[2021-05-25] MEDS: ALLOPURINOL 100 MG TAB PO SCH (08:40)
[2021-05-25] MEDS: FUROSEMIDE 40 MG/4 ML VIAL IV SCH (08:41)
[2021-05-25] MEDS: FAMOTIDINE (10MG/ML) 2ML VL IV SCH (08:41)
[2021-05-25] MEDS: CARVEDILOL 12.5 MG TAB PO SCH (08:41)
[2021-05-25] MEDS: HYDROcodone-ACET 5/325MG TAB PO PRN (08:58)
[2021-05-25] MEDS: BUDESONIDE (INHALATION) 0.5 MG/2 ML NEB NEB SCH (08:59)
[2021-05-25] MEDS: IPRATROPIUM BROM 0.5 MG/2.5ML INH SOL NEB PRN (08:59)
[2021-05-25] MEDS: ALBUTEROL SULF 2.5 MG/0.5ML(0.5%) NEB SOLN NEB PRN (08:59)
[2021-05-25 09:00] VITALS: BP 121/83
[2021-05-25 13:00] VITALS: BP 114/70
[2021-05-25] MEDS ORDERED: SACU1TAB PO (14:53)
[2021-05-25] MEDS ORDERED: FURO1TAB31 PO (14:53)
== END 2021-05-25 16:07 | disposition home or self-care (01) | DRG 145 ==
LOC: ER 12:14 → TELE 17:07 → TELE-WESTW 05-13 12:27 → TELE 05-13 13:05 → TELE-CENTR 05-13 14:46
PROVIDERS: ADMIT Hospitalist; ATTEND Internal Medicine
DX: J20.9 Acute bronchitis, unspecified (principal); J96.21 Acute and chronic respiratory failure with hypoxia; I50.43 Acute on chronic combined systolic (congestive) and diastolic (congestive) heart failure; I27.21 Secondary pulmonary arterial hypertension; Z68.43 Body mass index [BMI] 50.0-59.9, adult; I42.0 Dilated cardiomyopathy; J44.0 Chronic obstructive pulmonary disease with (acute) lower respiratory infection; I11.0 Hypertensive heart disease with heart failure; J44.1 Chronic obstructive pulmonary disease with (acute) exacerbation; I16.9 Hypertensive crisis, unspecified; E66.01 Morbid (severe) obesity due to excess calories; M1A.9XX0 Chronic gout, unspecified, without tophus (tophi); E78.5 Hyperlipidemia, unspecified; E11.9 Type 2 diabetes mellitus without complications; E04.2 Nontoxic multinodular goiter; F17.210 Nicotine dependence, cigarettes, uncomplicated; G47.33 Obstructive sleep apnea (adult) (pediatric); I48.91 Unspecified atrial fibrillation; J98.11 Atelectasis; Z20.822 Contact with and (suspected) exposure to COVID-19; Z80.9 Family history of malignant neoplasm, unspecified; Z86.73 Personal history of transient ischemic attack (TIA), and cerebral infarction without residual deficits; Z86.16 Personal history of COVID-19; Z79.899 Other long term (current) drug therapy; Z98.51 Tubal ligation status; Z71.6 Tobacco abuse counseling; Z91.19 Patient's noncompliance with other medical treatment and regimen
CPT/HCPCS: 36415; 36600; 71046; 71275; 76536; 80048; 80053; 80061; 80307; 81001; 82306; 82728; 82805; 83036; 83735; 83880; 84100; 84443; 84484; 85025; 85379; 85610; 85730; 86141; 87040; 87081; 87086; 87426; 87804; 93005; 94640; 96374; G0378; J0696; J2405; J3490

== ENCOUNTER 2021-07-14 05:46 | Emergency (ER) | payer MEDICAID ==
[~2021-07-14] VITALS: Ht 175.3 cm; Wt 163.3 kg
[~2021-07-14 05:46] MED LIST changes: +ALBU2SYP10 PO; +CHOL20007 PO; +FURO1TAB31 PO; +HYDR-4798 PO; +SACU1TAB PO
[2021-07-14] MEDS ORDERED: cloNIDine HCL 0.1 MG TAB PO ONE (06:45)
[2021-07-14 07:16] LABS: Basophils # (auto) 0.1 10 ^3/uL (0-0.2); Basophils % (auto) 1.4 % (0.0-2.0); Eosinophils # (auto) 0.1 10 ^3/uL (0-0.8); Eosinophils % (auto) 1.4 % (0.0-7.0); Hematocrit 40.3 % (36.0-46.0); Hemoglobin 12.9 g/dL (12.2-16.2); Lymphocytes # (auto) 1.4 10 ^3/uL (0.4-5.4); Lymphocytes % (auto) 25.4 % (10.0-50.0); Mean Corpuscular Hemoglobin 28.7 pg (28.0-32.0); Mean Corpuscular Hgb Conc. 32.1 g/dL (32.0-36.0); Mean Corpuscular Volume 89.3 fL (80.0-100.0); Monocytes # (auto) 0.6 10 ^3/uL (0-1.3); Neutrophils # (auto) 3.2 10 ^3/uL (1.6-8.6); Neutrophils % (auto) 60.8 % (37.0-80.0); Nucleated Red Blood Cells % 0.2 %; Red Blood Cells 4.51 10^6/uL (4.0-5.20); Red Cell Distribution Width 16.4 % (11.8-14.3); White Blood Cell 5.3 10^3/uL (4.4-10.8)
[2021-07-14 07:32] LABS: Albumin 3.1 g/dL (3.4-5.0); BUN/Creatinine Ratio 20.5; Calcium 8.9 mg/dL (8.5-10.1); Potassium 3.6 mmol/L (3.5-5.1)
[2021-07-14 07:37] LABS: Bilirubin, Total 0.6 mg/dL (0.2-1.0); Total Protein 6.9 g/dL (6.4-8.2)
[2021-07-14] MEDS ORDERED: LABETALOL HCL 5 MG/ML 4ML SYRINGE IV ONE (09:00)
[2021-07-14 09:35] LABS: Urine WBC None Seen /hpf (0 - 5)
[2021-07-14 09:48] LABS: Urine Bacteria NONE SEEN /hpf (None Seen); Urine Blood 1+ /uL (Negative); Urine Mucus FEW (None Seen); Urine Specific Gravity 1.025 (1.001-1.035)
[2021-07-14] MEDS ORDERED: HYDROcodone-ACET 10/325MG TAB PO ONE (10:30)
[2021-07-14] MEDS ORDERED: FUROSEMIDE 20 MG/2 ML VIAL IV ONE (11:30)
[2021-07-14 11:42] VITALS: BP 151/81
== END 2021-07-14 11:55 | disposition home or self-care (01) ==
LOC: ER 05:46
DX: I11.0 Hypertensive heart disease with heart failure (principal); I50.9 Heart failure, unspecified; K46.9 Unspecified abdominal hernia without obstruction or gangrene; E66.01 Morbid (severe) obesity due to excess calories; Z68.43 Body mass index [BMI] 50.0-59.9, adult; E11.9 Type 2 diabetes mellitus without complications; I48.91 Unspecified atrial fibrillation; E78.5 Hyperlipidemia, unspecified; J45.909 Unspecified asthma, uncomplicated; M10.9 Gout, unspecified; F17.210 Nicotine dependence, cigarettes, uncomplicated; Z79.01 Long term (current) use of anticoagulants; Z79.899 Other long term (current) drug therapy; Z88.8 Allergy status to other drugs, medicaments and biological substances
CPT/HCPCS: 36415; 71045; 74176; 80053; 81001; 83880; 84484; 85025; 96374; 96375; 99285; J1940; J3490

== ENCOUNTER 2021-07-20 07:55 | Emergency (ER) | payer MEDICAID ==
[~2021-07-20] VITALS: Ht 175.3 cm; Wt 158.8 kg
[2021-07-20] MEDS ORDERED: COLCHICINE 0.6 MG CAP PO ONE (08:30)
[2021-07-20] MEDS ORDERED: methylPREDNISolone SOD SUCC 125 MG/2 ML VL IM ONE (08:30)
[2021-07-20] MEDS ORDERED: COLCHICINE 0.6 MG CAP ONE (08:33)
[2021-07-20] MEDS ORDERED: COLC1TAB3 PO (08:36)
[2021-07-20] MEDS ORDERED: INDO50CA82 PO (08:36)
[2021-07-20 10:20] VITALS: BP 133/84
== END 2021-07-20 10:24 | disposition home or self-care (01) ==
LOC: ER 07:55
DX: M10.9 Gout, unspecified (principal); J45.909 Unspecified asthma, uncomplicated; E11.9 Type 2 diabetes mellitus without complications; E78.5 Hyperlipidemia, unspecified; I10 Essential (primary) hypertension; F17.210 Nicotine dependence, cigarettes, uncomplicated; Z98.51 Tubal ligation status
CPT/HCPCS: 36415; 84550; 96372; 99283; J2930

== ENCOUNTER 2021-07-30 11:15 | Emergency (ER) | payer MEDICAID ==
[~2021-07-30] VITALS: Ht 175.3 cm; Wt 163.3 kg
[~2021-07-30 11:15] MED LIST changes: +COLC1TAB3 PO
[2021-07-30 12:42] LABS: Basophils # (auto) 0.1 10 ^3/uL (0-0.2); Basophils % (auto) 1.6 % (0.0-2.0); Eosinophils # (auto) 0.1 10 ^3/uL (0-0.8); Eosinophils % (auto) 1.6 % (0.0-7.0); Hematocrit 45.1 % (36.0-46.0); Hemoglobin 14.6 g/dL (12.2-16.2); Lymphocytes # (auto) 1.3 10 ^3/uL (0.4-5.4); Lymphocytes % (auto) 29.6 % (10.0-50.0); Mean Corpuscular Hemoglobin 28.7 pg (28.0-32.0); Mean Corpuscular Hgb Conc. 32.5 g/dL (32.0-36.0); Mean Corpuscular Volume 88.2 fL (80.0-100.0); Monocytes # (auto) 0.3 10 ^3/uL (0-1.3); Monocytes % (auto) 6.8 % (0.0-12.0); Neutrophils # (auto) 2.7 10 ^3/uL (1.6-8.6); Neutrophils % (auto) 60.4 % (37.0-80.0); Nucleated Red Blood Cells % 0.3 %; Red Blood Cells 5.11 10^6/uL (4.0-5.20); Red Cell Distribution Width 15.7 % (11.8-14.3); White Blood Cell 4.5 10^3/uL (4.4-10.8)
[2021-07-30 12:49] LABS: Albumin 3.3 g/dL (3.4-5.0); BUN/Creatinine Ratio 16.7; Calcium 9.1 mg/dL (8.5-10.1); Potassium 3.3 mmol/L (3.5-5.1)
[2021-07-30 12:53] LABS: Bilirubin, Total 0.7 mg/dL (0.2-1.0); Total Protein 7.1 g/dL (6.4-8.2)
[2021-07-30 15:27] VITALS: BP 141/98
[2021-07-30] MEDS ORDERED: FUROSEMIDE 40 MG TAB PO ONE (15:30)
[2021-07-30] MEDS ORDERED: POTASSIUM EFFERVESENT TAB 25 MEQ PO ONE (15:30)
== END 2021-07-30 15:44 | disposition home or self-care (01) ==
LOC: ER 11:15
DX: E87.6 Hypokalemia (principal); I11.0 Hypertensive heart disease with heart failure; I50.9 Heart failure, unspecified; E11.9 Type 2 diabetes mellitus without complications; I48.91 Unspecified atrial fibrillation; J45.909 Unspecified asthma, uncomplicated; M10.9 Gout, unspecified; F17.210 Nicotine dependence, cigarettes, uncomplicated
CPT/HCPCS: 36415; 71045; 80053; 83880; 84484; 85025; 93005

== ENCOUNTER 2024-10-18 03:55 | Inpatient (IN) | payer MEDICAID ==
[~2024-10-18] VITALS: Ht 175.3 cm; Wt 165.8 kg
[~2024-10-18 03:55] MED LIST changes: -ALBU2SYP10 PO; +ALBU2SYP25 PO; -SIMV-8 PO; +SIMV20TA20 PO
[2024-10-18] MEDS ORDERED: ONDANSETRON HCL 4 MG/2 ML VIAL IV ONE (04:30)
[2024-10-18] MEDS ORDERED: MORPHINE SULFATE INJ 2 MG/ml SYRG IV ONE (04:30)
--- NOTE | 2024-10-18 04:37 | ED.PDOC ---
History of Present Illness HPI Comments 64 y/o F presents with 2x week history of right flank pain. Patient endorses on pain being a 10/10 in severity. She denies having nausea, vomiting, diarrhea, fever, chills, or further associated symptoms. Hx of AFIB, Asthma, CHF, DM, Gout, HLD, HTN, on hospice for heart condition, and gallstones that was never treated for. Patient also c/o right-middle pain after removing her ring finger 3x days ago. Chief Complaint: Abdominal Pain Time Seen by MD: 04:15 Primary Care Provider: JESS Reviewed Notes: Nurses Notes, Medications, Allergies Allergies: Coded Allergies: Atorvastatin (Unverified Allergy, Severe, 02/21/14) Home Meds Active Scripts Colchicine (Colcrys) 0.6 Mg Tab, 1 TAB PO DAILY, #1 TAB 0 Refills Prov:PASHA VILLA 07/20/21 Indomethacin (Indomethacin) 50 Mg Cap, 1 CAP PO TID PRN, #30 CAP 0 Refills Prov:PASHA VILLA 07/20/21 Sacubitril-Valsartan (Entresto 24-26 mg) 1 Tab Tab, 1 TAB PO BID for 30 Days, #60 TAB Prov:SKY PHILLIPS MD 05/25/21 Furosemide (Lasix) 40 Mg Tab, 40 MG PO DAILY for 30 Days, #30 TAB Prov:SKY PHILLIPS MD 05/25/21 Reported Medications Cholecalciferol (Gnp Vitamin D) 1,000 Unit Tab, PO 10/18/24 Vericiguat (Verquvo) 5 Mg Tab, PO 10/18/24 Dapagliflozin Propanediol (Farxiga) 10 Mg Tab, 1 TAB PO DAILY 10/18/24 Cholecalciferol (VITAMIN D3) 2,000 Unit Tab, 1 TAB PO DAILY, #30 TAB 5 Refills 05/13/21 Albuterol Sulfate (Ventolin) 2 Mg/5 Ml Sr, 2 MG PO Q6HP PRN for SHORTNESS OF BREATH, MG 05/13/21 Hydrocodone-Acetaminophen (Hydrocodone Bitartrate/AC 10-325 mg) 1 Tab Tab, 1 TAB PO TIDP PRN for PAIN SCALE 7 THRU 10, TAB 05/13/21 Allopurinol (Allopurinol) 100 Mg Tab, 100 MG PO DAILY, TAB 04/27/21 Indomethacin (Indomethacin) 50 Mg Cap, 50 MG PO BID for 30 Days, MG 04/27/21 Simvastatin (Simvastatin) 20 Mg Tab, 20 MG PO HS for 30 Days 04/27/21 Clopidogrel Bisulfate (Plavix) 75 Mg Tab, 1 TAB PO DAILY, #90 TAB 1 Refill 04/27/21 Carvedilol (Carvedilol) 12.5 Mg Tab, 12.5 MG PO Q12HR for 30 Days, MG 04/27/21 Information Source: Patient Mode of Arrival: Wheelchair Severity: Moderate Timing: Weeks Duration: Since onset Prehospital treatment: None Review of Systems: REVIEW OF SYSTEMS: No fever, no chills, or fatigue HEENT: No sore throat, no earache, no congestion, no neck pain. Cardiac: No chest pain. No palpitations. Lungs: No shortness of breath, no cough. GI: No nausea, no vomiting, no diarrhea, no constipation, no abdominal pain : No dysuria, frequency, or urgency. No hematuria. Musculoskeletal: Right flank and right-middle finger pain, no joint pain , no joint swelling, no extremity edema. Skin: No rash, no itching. Neuro: No headache, no dizziness, no weakness Vital Signs Vital Signs Date Time Temp Pulse Resp B/P (MAP) Pulse Ox O2 Delivery O2 Flow Rate FiO2 10/18/24 06:43 70 16 119/81 (94) 96 10/18/24 04:14 98.4 98.4 Physical Exam General: Awake, alert and oriented. No acute distress. Skin: Skin in warm, dry and intact. Appropriate color for ethnicity. HEENT: The head is normocephalic and atraumatic. Conjunctivae are clear without exudates or hemorrhage. Sclera is non-icteric. EOM are intact. No signs of nystagmus. Eyelids are normal in appearance without swelling or lesions. Oral mucosa is pink and moist Neck: The neck is supple with normal range of motion. No JVD. Cardiac: Heart rate and rhythm are normal. No murmurs, gallops, or rubs are auscultated. Respiratory: No signs of respiratory distress. Lung sounds are clear in all lobes bilaterally without rales, rhonchi, or wheezes. Abdominal: Abdomen is soft, non-tender without distention, guarding or rigidity. Bowel sounds are present and normoactive in all four quadrants. Musculoskeletal: right flank tenderness Extremities: Right middle finger is swollen and tender to palpation, no deformity. Otherwise, remaining upper and lower extremities are atraumatic in appearance without deformity or edema. Neurological: The patient is awake, alert and oriented to person, place, and time with normal speech. Speech is clear. There is no facial asymmetry. Psychiatric: Appropriate mood and affect. Good judgement and insight. 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 Was a procedure done?: No Differential Dx Considerations may include: Differential diagnosis includes but is not limited to pyelonephritis, nephrolithiasis, AAA, musculoskeletal pain, urinary tract infection, cholecystitis, appendicitis, sepsis, CHF exacerbation, medication side effect ,other X-Ray, Labs, Meds, VS Vital Signs Date Time Temp Pulse Resp B/P (MAP) Pulse Ox O2 Delivery O2 Flow Rate FiO2 10/18/24 06:43 70 16 119/81 (94) 96 10/18/24 04:14 98.4 80 20 120/50 (73) 97 98.4 Lab Test 10/18/24 07:24 10/18/24 05:14 Range/Units Lactic Acid Level 2.4 *H 2.4 *H 0.4-2.0 mmol/L White Blood Count 7.0 4.4-10.8 10^3/uL Red Blood Count 5.18 4.0-5.20 10^6/uL Hemoglobin 15.2 12.2-16.2 g/dL Hematocrit 45.9 36.0-46.0 % Mean Corpuscular Volume 88.6 80.0-100.0 fL Mean Corpuscular Hemoglobin 29.4 28.0-32.0 pg Mean Corpuscular Hemoglobin Concent 33.2 32.0-36.0 g/dL Red Cell Distribution Width 14.8 H 11.8-14.3 % Platelet Count 185 140-450 10^3/uL Mean Platelet Volume 8.7 6.9-10.8 fL Neutrophils (%) (Auto) 37.0-80.0 % Lymphocytes (%) (Auto) 10.0-50.0 % Monocytes (%) (Auto) 0.0-12.0 % Basophils (%) (Auto) 0.0-2.0 % Neutrophils # (Auto) 1.6-8.6 10 ^3/uL Lymphocytes # (Auto) 0.4-5.4 10 ^3/uL Monocytes # (Auto) 0-1.3 10 ^3/uL Differential Total Cells Counted 100.0 100 Neutrophils % (Manual) 41 37.0-80.0 Band Neutrophils % (Manual) 0 Lymphocytes % (Manual) 43 10.0-50.0 Monocytes % (Manual) 15 H 0-12 Eosinophils % (Manual) 1 0-7 Basophils % (Manual) 0 0.0-2.0 Metamyelocytes % (manual) 0 Myelocytes % (Manual) 0 Promyelocytes % (Manual) 0 Blast Cells % (Manual) 0 Reactive Lymphocytes 0 Platelet Estimate Adequate Sodium Level 137 136-145 mmol/L Potassium Level 3.4 L 3.5-5.1 mmol/L Chloride Level 97 L 98-107 mmol/L Carbon Dioxide Level 30 20-31 mmol/L Anion Gap 10 5-15 Blood Urea Nitrogen 16 9-23 mg/dL Creatinine 0.94 0.550-1.02 mg/dL Glomerular Filtration Rate Calc 69 >90 mL/min BUN/Creatinine Ratio 17.0 10.0-20.0 Serum Glucose 92 74-106 mg/dL Hemoglobin A1c 5.1 <5.7 % A1C Calcium Level 9.6 8.7-10.4 mg/dL Total Bilirubin 0.5 0.2-1.0 mg/dL Aspartate Amino Transferase (AST) 20 13-40 U/L Alanine Aminotransferase (ALT) 16 7-40 U/L Alkaline Phosphatase 98 46-116 U/L B-Type Natriuretic Peptide 24.85 0-100 pg/mL Total Protein 8.0 5.7-8.2 g/dL Albumin 4.7 3.2-4.8 g/dL Lipase 32 12-53 U/L Current Medications Medications (Trade) Dose Ordered Sig/Ganesh Route Start Time Stop Time Status Last Admin Acetaminophen (Tylenol Tablet Or Capsule) 1,000 mg ONCE ONCE PO 10/18/24 05:30 10/18/24 05:31 DC 10/18/24 07:37 Ondansetron HCl (Zofran Po) 4 mg ONCE ONCE PO 10/18/24 05:30 10/18/24 05:31 DC 10/18/24 06:38 Sodium Chloride 500 ml @ 500 mls/hr Q1H ONCE IV 10/18/24 06:00 10/18/24 06:59 DC 10/18/24 06:26 [place] [id number] Ph: [phone] DIAGNOSTIC IMAGING Diagnostic Imaging Report : [id number] Signed PATIENT: KALPESH CASTANEDA ACCT: [id number] UNIT: [id number] : 1960 LOC: ER ROOM / BED: / AGE / SEX: 64 / F ADM STATUS: REG ER SERVICE 2 ORDERING PHYSICIAN: LESLIE FATIMA MD PROCEDURE(s): RHAN - R HAND 3 VIEW XRAY REASON: middle finger pain and swelling ORDER NUMBER(s): [id number], ACCESSION NUMBER(s): [id number] XY R HAND 3 VIEW XRAY, INDICATION: middle finger pain and swelling TECHNICAL DATA: Frontal, oblique and lateral views were obtained of the right hand. COMPARISON: None FINDINGS: No fracture is identified. Joint spaces are maintained. Alignment is anatomic. Soft tissues are within normal limits. IMPRESSION: 1. No acute fracture or dislocation of the right hand. ATED BY: VICENTA ELLINGTON MD DICTATED DATE/TIME: 10/18/24506 SIGNED BY: VICENTA ELLINGTON MD SIGNED DATE/TIME: 10/18/24506 CC: [address] [address] Ph: [phone] DIAGNOSTIC IMAGING Diagnostic Imaging Report : [id number] Signed PATIENT: KALPESH CASTANEDA ACCT: [id number] UNIT: [id number] : 1960 LOC: ER ROOM / BED: / AGE / SEX: 64 / F ADM STATUS: REG ER SERVICE 9 ORDERING PHYSICIAN: LESLIE FATIMA MD PROCEDURE(s): ABPL - CT AB PEL WO CON-NO ORAL OR IV REASON: RUQ pain, history of gallstones ORDER NUMBER(s): [id number], ACCESSION NUMBER(s): [id number] Exam: CT CT AB PEL WO CON-NO ORAL OR IV History: RUQ pain, History of gallstones Comparison Study: CT ABD PELVIS WO CONTRAST on DOS: 07/14/21 Technique: Multidetector spiral CT of the abdomen and pelvis was performed from lung bases to pubic symphysis. Imaging was performed without intravenous contrast. Coronal and sagittal multiplanar reformats were obtained from the axial data set by the technologist. Radiation Dose : 1. Abdomen/Pelvis: CTDIvol 27.9 mGy, DLP 1705.8 mGy*cm. Findings: Evaluation of vasculature and solid organs is limited due to lack of intravenous contrast use. Lung Bases: Left lower lobe atelectasis. Cardiomegaly and coronary artery disease. No no pericardial effusion. Liver: The liver is normal in size. No focal lesions. Gallbladder and Biliary Tree: The gallbladder is surgically absent. No intrahepatic or extrahepatic biliary ductal dilatation. Spleen: Unremarkable Pancreas: The pancreas is grossly unremarkable. Adrenal Glands: Unremarkable Kidneys: Kidneys are unremarkable without calculi or hydronephrosis. Right extrarenal pelvis. No intrarenal calculi. Bilateral renal vascular calcifications. GI tract: The stomach is grossly normal in appearance. There is a surgical anastomosis in a nondilated bowel loop in the anterior abdomen. No evidence of bowel obstruction. Scattered stool throughout the colon. Normal appendix. Peritoneum/mesentery/retroperitoneum. No evidence of free intraperitoneal air. No ascites. No evidence of suspicious lymphadenopathy. Abdominal Wall: Soft tissue thickening in the midline ventral abdominal wall likely related to prior surgery. Left lateral to midline, there is a fat containing supraumbilical hernia. There is a smaller supraumbilical hernia also containing fat. Vasculature: There are atherosclerotic calcifications in the aorta.The visualized abdominal aorta is normal in size and caliber. Evaluation of abdominal and pelvic vessels is limited due to lack of intravenous contrast. Urinary Bladder: Grossly unremarkable for degree of distention. Pelvic Organs: Unremarkable Musculoskeletal: No aggressive focal bony lesions, acute fractures or dislocation. Right hip joint space narrowing. IMPRESSION: 1. No acute abdominal or pelvic findings. 2. Fat containing ventral abdominal wall hernias. 3. Evidence of prior bowel surgery. No bowel obstruction. ATED BY: VICENTA ELLINGTON MD DICTATED DATE/TIME: 10/18/24500 SIGNED BY: VICENTA ELLINGTON MD SIGNED DATE/TIME: 10/18/24500 CC: Time of 1ST Reevaluation: 04:45 Reevaluation 1ST: Unchanged Patient Education/Counseling: Treatment, Other (Need for admission) Family Education/Counseling: No Family Present Sepsis Sepsis Reasesment Focused Exam Orders: Laboratory Tests 10/18/24 05:14: Lactic Acid Level 2.4 10/18/24 07:24: Lactic Acid Level 2.4 Departure 1 Departure Time of Disposition: 05:52 Impression: Primary Impression: Lactic acidemia Additional Impressions: Intractable abdominal pain Hypertension HLD (hyperlipidemia) Diabetes mellitus Afib CHF (congestive heart failure) Hypokalemia Disposition: ADMITTED INPATIENT Condition: Stable Comments Patient admitted for further observation, evaluation and treatment. Critical Care Note Critical Care Time?: No Stability Stability form required: No Heart Score Heart Score: Heart Score Response (Comments) Value History N/A 0 EKG N/A 0 Age N/A 0 Risk Factors N/A 0 Troponin N/A 0 Total 0 I personally scribed for LESLIE FATIMA MD ([email or web address]) on 10/18/24 at 04:37. Electronically submitted by Miguelito Hurtado ([email or web address]). I personally scribed for LESLIE FATIMA MD ([email or web address]) on 10/18/24 at 05:24. Electronically submitted by Miguelito Hurtado ([email or web address]). LESLIE FATIMA MD Oct 18, 2024 04:37
--- NOTE | 2024-10-18 05:04 | DVH ---
Exam: CT CT AB PEL WO CON-NO ORAL OR IV History: RUQ pain, History of gallstones Comparison Study: CT ABD PELVIS WO CONTRAST on DOS: 07/14/21 Technique: Multidetector spiral CT of the abdomen and pelvis was performed from lung bases to pubic s ymphysis. Imaging was performed without intravenous contrast. Coronal and sagittal multiplanar reform ats were obtained from the axial data set by the technologist. Radiation Dose : 1. Abdomen/Pelvis: CTDIvol 27.9 mGy, DLP 1705.8 mGy*cm. Findings: Evaluation of vasculature and solid organs is limited due to lack of intravenous contrast use. Lung Bases: Left lower lobe atelectasis. Cardiomegaly and coronary artery disease. No no pericardial effusion. Liver: The liver is normal in size. No focal lesions. Gallbladder and Biliary Tree: The gallbladder is surgically absent. No intrahepatic or extrahepatic b iliary ductal dilatation. Spleen: Unremarkable Pancreas: The pancreas is grossly unremarkable. Adrenal Glands: Unremarkable Kidneys: Kidneys are unremarkable without calculi or hydronephrosis. Right extrarenal pelvis. No intr arenal calculi. Bilateral renal vascular calcifications. GI tract: The stomach is grossly normal in appearance. There is a surgical anastomosis in a nondilate d bowel loop in the anterior abdomen. No evidence of bowel obstruction. Scattered stool throughout the colon. Normal appendix. Peritoneum/mesentery/retroperitoneum. No evidence of free intraperitoneal air. No ascites. No evidenc e of suspicious lymphadenopathy. Abdominal Wall: Soft tissue thickening in the midline ventral abdominal wall likely related to prior surgery. Left lateral to midline, there is a fat containing supraumbilical hernia. There is a small er supraumbilical hernia also containing fat. Vasculature: There are atherosclerotic calcifications in the aorta.The visualized abdominal aorta is normal in size and caliber. Evaluation of abdominal and pelvic vessels is limited due to lack of int ravenous contrast. Urinary Bladder: Grossly unremarkable for degree of distention. Pelvic Organs: Unremarkable Musculoskeletal: No aggressive focal bony lesions, acute fractures or dislocation. Right hip joint sp bj narrowing. IMPRESSION: 1. No acute abdominal or pelvic findings. 2. Fat containing ventral abdominal wall hernias. 3. Evidence of prior bowel surgery. No bowel obstruction.
--- NOTE | 2024-10-18 05:09 | DVH ---
XY R HAND 3 VIEW XRAY, INDICATION: middle finger pain and swelling TECHNICAL DATA: Frontal, oblique and lateral views were obtained of the right hand. COMPARISON: None FINDINGS: No fracture is identified. Joint spaces are maintained. Alignment is anatomic. Soft tissues are withi n normal limits. IMPRESSION: 1. No acute fracture or dislocation of the right hand.
[2024-10-18 05:36] LABS: Hematocrit 45.9 % (36.0-46.0); Hemoglobin 15.2 g/dL (12.2-16.2); Mean Corpuscular Hemoglobin 29.4 pg (28.0-32.0); Mean Corpuscular Hgb Conc. 33.2 g/dL (32.0-36.0); Mean Corpuscular Volume 88.6 fL (80.0-100.0); Platelet Count (auto) 185 10^3/uL (140-450); Red Blood Cells 5.18 10^6/uL (4.0-5.20); Red Cell Distribution Width 14.8 % (11.8-14.3)
[2024-10-18 05:43] LABS: Band Neutrophils % (manual) 0; Basophils % (manual) 0 (0.0-2.0); Blast Cells 0; Metamyelocytes % 0; Myelocytes % 0; Promyelocytes % 0; Reactive Lymphocytes 0
[2024-10-18 05:52] LABS: Alanine Aminotransferase 16 U/L (7-40); Albumin 4.7 g/dL (3.2-4.8); Alkaline Phosphatase 98 U/L (46-116); Anion Gap 10 (5-15); Aspartate Aminotransferase 20 U/L (13-40); Bilirubin, Total 0.5 mg/dL (0.2-1.0); Blood Urea Nitrogen 16 mg/dL (9-23); Calcium 9.6 mg/dL (8.7-10.4); Carbon Dioxide 30 mmol/L (20-31); Glucose 92 mg/dL (74-106); Lipase 32 U/L (12-53); Sodium 137 mmol/L (136-145)
[2024-10-18 05:53] LABS: Lactic Acid w/Reflex 2.4 mmol/L (0.4-2.0)
[2024-10-18 05:54] LABS: Chloride 97 mmol/L (98-107); Potassium 3.4 mmol/L (3.5-5.1)
[2024-10-18] MEDS: SODIUM CHLORIDE 0.9% 500 ML IV ONE (06:26)
[2024-10-18 06:27] LABS: Eosinophils % (manual) 1 (0-7); Lymphocytes % (manual) 43 (10.0-50.0); Monocytes % (manual) 15 (0-12)
[2024-10-18 06:28] LABS: Platelet Estimate Adequate
--- NOTE | 2024-10-18 06:29 | DVH ---
EXAM: XR Chest, 1 View CLINICAL INDICATION: Lactic acidemia TECHNIQUE: Frontal view of the chest. COMPARISON: CXRP on DOS: 07/30/21, CHEST PORTABLE on DOS: 07/30/21, CHEST PORTABLE on DOS: 07/14/21 FINDINGS: LUNGS AND PLEURAL SPACES: See below. HEART: Cardiomegaly with mild congestion. MEDIASTINUM: Unremarkable. Normal mediastinal contour. BONES/JOINTS: Unremarkable. No acute fracture. OTHER FINDINGS: . . IMPRESSION: Cardiomegaly with mild congestion.
[2024-10-18] MEDS: ONDANSETRON ODT 4 MG TAB PO ONE (06:38)
[2024-10-18] MEDS: ACETAMINOPHEN 500 MG TAB or CAP PO ONE (07:37)
[2024-10-18] MEDS ORDERED: ACETAMINOPHEN 325 MG TAB PO PRN (08:00)
[2024-10-18] MEDS ORDERED: NITROGLYCERIN 0.4 MG SL TAB SL PRN (08:00)
[2024-10-18] MEDS ORDERED: ONDANSETRON HCL 4 MG/2 ML VIAL IV PRN (08:00)
[2024-10-18] MEDS ORDERED: DAPA1TAB4 PO (08:02)
[2024-10-18] MEDS ORDERED: VERI5TAB PO (08:02)
[2024-10-18] MEDS ORDERED: CHOL1TAB30 PO (08:02)
--- NOTE | 2024-10-18 08:03 | DVHHP2 ---
History of Present Illness Reason for Visit: Abdominal pain History of Present Illness Anh Carter is a 64 year female with past medical history of COVID, hypertension, and hyperlipidemia, diabetes, asthma, AFib, TIA, CHF, leaky heart, gout, hernia status post hernia repair, , and tubal ligation who presents to the ED with abdominal pain x2 weeks. Patient reports that her pain is 10/10 sharp and constant. She states that there are no aggravating or relieving factors. Patient also states that she was having difficulty removing her ring on her fingers and complaining of discomfort but now relieved. Patient reports that she went to [place] last week, denies any recent sick contacts, recent trauma or injury, recent ingestion of spoiled food, fever, chills, nausea, vomiting, diarrhea, chest pain, shortness of breath, lightheadedness, weakness, or dizziness. Cardiovascular: AFIB, CHF, HTN, hyperipidemia Pulmonary: Asthma GANG MINER: TIA Rheumatologic: Gout Endocrine: Diabetes Past Medical History Leaking heart valve Hernia Past Surgical History: , Hernia Repair, Tubal Ligation Smoke: <1 pack per day ALCOHOL: occassional Drugs: Other (Quit) Lives: with Family Domestic Violence: Neg Review of Systems Gastrointestinal: Abdominal Pain Allergies: Coded Allergies: Atorvastatin (Unverified Allergy, Severe, 02/21/14) Medications Current Medications Medications Dose Ordered Sig/Ganesh Route Start Time Stop Time Status Last Admin Dose Admin Acetaminophen/ Hydrocodone Bitart 1 tab Q4HP PRN PO 10/18/24 08:00 UNV Ondansetron HCl 4 mg Q4HP PRN IV 10/18/24 08:00 UNV Acetaminophen 650 mg Q6HP PRN PO 10/18/24 08:00 UNV Morphine Sulfate 2 mg Q4HPRN PRN IV 10/18/24 08:00 UNV Nitroglycerin 0.4 mg Q5MINP PRN SL 10/18/24 08:00 UNV Morphine Sulfate 2 mg Q30M PRN IV 10/18/24 08:00 UNV Allopurinol 100 mg DAILY PO 10/18/24 10:00 UNV Carvedilol 12.5 mg Q12HR PO 10/18/24 10:00 UNV Clopidogrel Bisulfate 75 mg DAILY PO 10/18/24 10:00 UNV Furosemide 40 mg DAILY PO 10/18/24 10:00 UNV Sacubitril/ Valsartan 1 tab BID PO 10/18/24 10:00 UNV Patient Own Medication 1 tab DAILY PO 10/18/24 10:00 UNV Patient Own Medication 50 mg BID PO 10/18/24 10:00 UNV Patient Own Medication 20 mg HS PO 10/18/24 22:00 UNV Exam Vital Signs Vital Signs Date Time Temp Pulse Resp B/P (MAP) Pulse Ox O2 Delivery O2 Flow Rate FiO2 10/18/24 06:43 70 16 119/81 (94) 96 10/18/24 04:14 98.4 98.4 General Appearance: Alert, Oriented X3, Cooperative, No acute distress HEENT: Atraumatic, PERRLA, EOMI, Mucous membr. moist/pink Respiratory: Clear to auscultation, Normal air movement Cardiovascular: Regular rate, Normal S1, Normal S2, No murmurs Abdominal: Normal bowel sounds, Soft Extremities: No cyanosis, Normal pulses Skin: No significant lesion Neuro: Normal speech, Strength at 5/5 X4 ext, Normal tone, Sensation intact Psych/Mental Status: Mental status NL, Mood NL Labs/Xrays Labs Test 10/18/24 07:24 10/18/24 05:14 Range/Units White Blood Count 7.0 4.4-10.8 10^3/uL Red Blood Count 5.18 4.0-5.20 10^6/uL Hemoglobin 15.2 12.2-16.2 g/dL Hematocrit 45.9 36.0-46.0 % Mean Corpuscular Volume 88.6 80.0-100.0 fL Mean Corpuscular Hemoglobin 29.4 28.0-32.0 pg Mean Corpuscular Hemoglobin Concent 33.2 32.0-36.0 g/dL Red Cell Distribution Width 14.8 H 11.8-14.3 % Platelet Count 185 140-450 10^3/uL Mean Platelet Volume 8.7 6.9-10.8 fL Neutrophils (%) (Auto) 37.0-80.0 % Lymphocytes (%) (Auto) 10.0-50.0 % Monocytes (%) (Auto) 0.0-12.0 % Basophils (%) (Auto) 0.0-2.0 % Neutrophils # (Auto) 1.6-8.6 10 ^3/uL Lymphocytes # (Auto) 0.4-5.4 10 ^3/uL Monocytes # (Auto) 0-1.3 10 ^3/uL Differential Total Cells Counted 100.0 100 Neutrophils % (Manual) 41 37.0-80.0 Band Neutrophils % (Manual) 0 Lymphocytes % (Manual) 43 10.0-50.0 Monocytes % (Manual) 15 H 0-12 Eosinophils % (Manual) 1 0-7 Basophils % (Manual) 0 0.0-2.0 Metamyelocytes % (manual) 0 Myelocytes % (Manual) 0 Promyelocytes % (Manual) 0 Blast Cells % (Manual) 0 Reactive Lymphocytes 0 Platelet Estimate Adequate Sodium Level 137 136-145 mmol/L Potassium Level 3.4 L 3.5-5.1 mmol/L Chloride Level 97 L 98-107 mmol/L Carbon Dioxide Level 30 20-31 mmol/L Anion Gap 10 5-15 Blood Urea Nitrogen 16 9-23 mg/dL Creatinine 0.94 0.550-1.02 mg/dL Glomerular Filtration Rate Calc 69 >90 mL/min BUN/Creatinine Ratio 17.0 10.0-20.0 Serum Glucose 92 74-106 mg/dL Calcium Level 9.6 8.7-10.4 mg/dL Total Bilirubin 0.5 0.2-1.0 mg/dL Aspartate Amino Transferase (AST) 20 13-40 U/L Alanine Aminotransferase (ALT) 16 7-40 U/L Alkaline Phosphatase 98 46-116 U/L B-Type Natriuretic Peptide 24.85 0-100 pg/mL Total Protein 8.0 5.7-8.2 g/dL Albumin 4.7 3.2-4.8 g/dL Lipase 32 12-53 U/L EXAM: XR Chest, 1 View CLINICAL INDICATION: Lactic acidemia TECHNIQUE: Frontal view of the chest. COMPARISON: CXRP on DOS: 07/30/21, CHEST PORTABLE on DOS: 07/30/21, CHEST PORTABLE on DOS: 07/14/21 FINDINGS: LUNGS AND PLEURAL SPACES: See below. HEART: Cardiomegaly with mild congestion. MEDIASTINUM: Unremarkable. Normal mediastinal contour. BONES/JOINTS: Unremarkable. No acute fracture. OTHER FINDINGS: . . IMPRESSION: Cardiomegaly with mild congestion. XY R HAND 3 VIEW XRAY, INDICATION: middle finger pain and swelling TECHNICAL DATA: Frontal, oblique and lateral views were obtained of the right hand. COMPARISON: None FINDINGS: No fracture is identified. Joint spaces are maintained. Alignment is anatomic. Soft tissues are within normal limits. IMPRESSION: 1. No acute fracture or dislocation of the right hand. Exam: CT CT AB PEL WO CON-NO ORAL OR IV History: RUQ pain, History of gallstones Comparison Study: CT ABD PELVIS WO CONTRAST on DOS: 07/14/21 Technique: Multidetector spiral CT of the abdomen and pelvis was performed from lung bases to pubic symphysis. Imaging was performed without intravenous contrast. Coronal and sagittal multiplanar reformats were obtained from the axial data set by the technologist. Radiation Dose : 1. Abdomen/Pelvis: CTDIvol 27.9 mGy, DLP 1705.8 mGy*cm. Findings: Evaluation of vasculature and solid organs is limited due to lack of intravenous contrast use. Lung Bases: Left lower lobe atelectasis. Cardiomegaly and coronary artery d isease. No no pericardial effusion. Liver: The liver is normal in size. No focal lesions. Gallbladder and Biliary Tree: The gallbladder is surgically absent. No intrahepatic or extrahepatic biliary ductal dilatation. Spleen: Unremarkable Pancreas: The pancreas is grossly unremarkable. Adrenal Glands: Unremarkable Kidneys: Kidneys are unremarkable without calculi or hydronephrosis. Right extrarenal pelvis. No intrarenal calculi. Bilateral renal vascular calcifications. GI tract: The stomach is grossly normal in appearance. There is a surgical anastomosis in a nondilated bowel loop in the anterior abdomen. No evidence of bowel obstruction. Scattered stool throughout the colon. Normal appendix. Peritoneum/mesentery/retroperitoneum. No evidence of free intraperitoneal air. No ascites. No evidence of suspicious lymphadenopathy. Abdominal Wall: Soft tissue thickening in the midline ventral abdominal wall likely related to prior surgery. Left lateral to midline, there is a fat containing supraumbilical hernia. There is a smaller supraumbilical hernia also containing fat. Vasculature: There are atherosclerotic calcifications in the aorta.The visualized abdominal aorta is normal in size and caliber. Evaluation of abdominal and pelvic vessels is limited due to lack of intravenous contrast. Urinary Bladder: Grossly unremarkable for degree of distention. Pelvic Organs: Unremarkable Musculoskeletal: No aggressive focal bony lesions, acute fractures or dislocation. Right hip joint space narrowing. IMPRESSION: 1. No acute abdominal or pelvic findings. 2. Fat containing ventral abdominal wall hernias. 3. Evidence of prior bowel surgery. No bowel obstruction. Assessment/Plan Assessment/Plan Assessment Intractable abdominal pain Hypokalemia Lactic acidosis with probable sepsis Cardiomegaly with congestion probable pneumonia Tobacco use Alcohol use Morbid obesity Ventral abdominal wall hernia Ex substance abuse History of hypertension History of hyperlipidemia History of diabetes type 2 History of asthma History of AFib History of CHF History of leaky heart valve History of gout History of hernia status post hernia repair History of History of tubal ligation Plan Admit to tele Replete [place] Hemoglobin A1c ISS and Accu-Cheks Lactic levels NS given ED Antiemetics Pain management Antipyretics Chest x-ray BNP noted Blood culture Urine bacterial culture X-ray right hand noted Manual differential CT abdomen and pelvis noted UA Lipase Strict I&Os Daily weight Diurese Diet Home medications reconciled DVT prophylaxis-patient on Plavix PUD prophylaxis-not indicated no history of GERD or GI bleed Discussed plan of care with patient and nurse Counseled patient on cessation of tobacco use, alcohol use, and continues of cessation of substance abuse Counseled patient on lifestyle modifications, diet, and exercise Plan discussed with: Patient My Orders Orders - SHANTANU PHILIP [employer]ING ADVISER Procedure Category Date Status Time Admit ADMIT 10/18/24 Transmitted 07:59 Allergies AYLA 10/18/24 In Process 07:59 Code Status CODE 10/18/24 Transmitted 07:59 Hydrocodone-Acet PHA 10/18/24 Logged 5/325mg Tab ([place] 08:00 Ondansetron Hcl PHA 10/18/24 Logged (Zofran) 08:00 Complete Blood Count LAB 10/19/24 Verified 04:00 Comprehensive LAB 10/19/24 Verified Metabolic Panel 04:00 Cardiac DIET 10/18/24 Transmitted Diet-2gna,Lofat,Lochol Breakfast Acetaminophen Tablet PHA 10/18/24 Logged (Tylenol Tablet) 08:00 Morphine Sulfate PHA 10/18/24 Logged Injection 08:00 Nitroglycerin PHA 10/18/24 Logged Sublingual (Ntrostat 08:00 Morphine Sulfate PHA 10/18/24 Logged Injection 08:00 Stat Ekg For Chest AYLA 10/18/24 In Process Pain 07:59 Notify Of Changes AYLA 10/18/24 In Process From Base 07:59 Tank Tender For AYLA 10/18/24 In Process 24 Hours 07:59 Emergency Dysrhythmia AYLA 10/18/24 In Process Protocol 07:59 Rhythm Strips Once AYLA 10/18/24 In Process Every Shift 07:59 Oxygen By Nasal RT 10/18/24 Transmitted Cannula 07:59 Potassium Er Tablet PHA 10/18/24 Logged (Klor-Con Tablet) 08:00 Allopurinol Tablet PHA 10/18/24 Logged (Zyloprim Tablet) 10:00 Carvedilol Tablet PHA 10/18/24 Logged (Coreg Tablet) 10:00 Clopidogrel Bisulfate PHA 10/18/24 Logged (Plavix) 10:00 Furosemide Tablet PHA 10/18/24 Logged (Lasix Tablet) 10:00 Sacubitril-Valsartan PHA 10/18/24 Logged (Entresto 24-26 Mg 10:00 (Nf) Cholecalciferol PHA 10/18/24 Logged (Vitamin D3) 10:00 (Nf) Indomethacin PHA 10/18/24 Logged 10:00 (Nf) Simvastatin PHA 10/18/24 Logged 22:00 Date of Service: Oct 18, 2024 Billing Provider: SHANTANU PHILIP Common Visit Codes: [id number] INP/OBS CARE (HIGH) SHANTANU PHILIP Oct 18, 2024 08:03
[2024-10-18] MEDS ORDERED: MORPHINE SULFATE 4 MG/ML SYR/VIAL IV PRN (08:15)
[2024-10-18 09:13] VITALS: BP 110/86; PULSE 74; RESP 16; TEMP 97.9; O2SAT 94
[2024-10-18] MEDS: INDOMETHACIN 50 MG PO SCH (10:00)
[2024-10-18] MEDS ORDERED: CHOLECALCIFEROL (VITD3) 1,000UNIT=25mCg TAB PO SCH (10:00)
[2024-10-18] MEDS: POTASSIUM CHL 20 Meq TABLET PO ONE (10:02)
[2024-10-18] MEDS: CLOPIDOGREL BISULFATE 75 MG TAB PO SCH (10:02)
[2024-10-18] MEDS: EMPAGLIFLOZIN 10 MG TAB PO SCH (10:03)
[2024-10-18] MEDS: CHOLECALCIFEROL (VITD3) 1,000UNIT=25mCg TAB PO SCH (10:03)
[2024-10-18] MEDS: CARVEDILOL 12.5 MG TAB PO SCH (10:04)
[2024-10-18] MEDS: ALLOPURINOL 100 MG TAB PO SCH (10:04)
[2024-10-18] MEDS: FUROSEMIDE 40 MG TAB PO SCH (10:04)
[2024-10-18] MEDS: HYDROcodone-ACET 5/325MG TAB PO PRN (10:14)
[2024-10-18] MEDS: cefTRIAXone 1GM/50ML D5W 50 ML IV SCH (10:17)
[2024-10-18 13:00] VITALS: BP 123/79; PULSE 65; RESP 20; TEMP 97.7; O2SAT 98
--- NOTE | 2024-10-18 13:20 | DVHPN2 ---
Subjective 64-year-old female with a history of heart failure, AFib, COPD, asthma, diabetes, gout, hypertension, dyslipidemia who was actually on hospice at home comes here with a chief complaint of right flank pain for 1 week Changes from previous H/P or p: Changes Objective Vitals Vital Signs Date Time Temp Pulse Resp B/P (MAP) Pulse Ox O2 Delivery O2 Flow Rate FiO2 10/18/24 11:04 64 123/79 10/18/24 09:13 97.9 16 94 97.9 General Appearance: Alert, Oriented X3, Cooperative, No acute distress Lungs: Clear to auscultation, Normal air movement Cardiovascular: Regular rate, Normal S1, Normal S2 Abdomen: Normal bowel sounds, Soft, No tenderness Extremities: No edema Medications Current Medications Medications Dose Ordered Sig/Ganesh Route Start Time Stop Time Status Last Admin Dose Admin Acetaminophen/ Hydrocodone Bitart 1 tab Q4HP PRN PO 10/18/24 08:00 10/18/24 10:14 1 TAB Ondansetron HCl 4 mg Q4HP PRN IV 10/18/24 08:00 Acetaminophen 650 mg Q6HP PRN PO 10/18/24 08:00 Morphine Sulfate 2 mg Q4HPRN PRN IV 10/18/24 08:15 Nitroglycerin 0.4 mg Q5MINP PRN SL 10/18/24 08:00 Morphine Sulfate 2 mg Q30M PRN IV 10/18/24 08:15 Allopurinol 100 mg DAILY PO 10/18/24 10:00 10/18/24 10:04 100 MG Carvedilol 12.5 mg Q12HR PO 10/18/24 10:00 10/18/24 10:04 12.5 MG Clopidogrel Bisulfate 75 mg DAILY PO 10/18/24 10:00 10/18/24 10:02 75 MG Furosemide 40 mg DAILY PO 10/18/24 10:00 10/18/24 10:04 40 MG Sacubitril/ Valsartan 1 tab BID PO 10/18/24 10:00 Hold Cholecalciferol 2,000 unit DAILY PO 10/18/24 10:00 10/18/24 10:03 2,000 UNIT Patient Own Medication 50 mg BID PO 10/18/24 10:00 Patient Own Medication 20 mg HS PO 10/18/24 22:00 Empaglifozin 10 mg DAILY PO 10/18/24 10:00 10/18/24 10:03 10 MG Ceftriaxone Sodium 50 ml @ 100 mls/hr DAILY@09 IV 10/18/24 10:15 10/18/24 10:17 100 MLS/HR Laboratory Results Laboratory Tests 10/18/24 05:14 Chemistry Test 10/18/24 05:14 Albumin 4.7 g/dL (3.2-4.8) Calcium Level 9.6 mg/dL (8.7-10.4) Total Protein 8.0 g/dL (5.7-8.2) Lipid panel Test 10/18/24 05:14 Lipase 32 U/L (12-53) Cardiac Markers Test 10/18/24 05:14 B-Type Natriuretic Peptide 24.85 pg/mL (0-100) LFT Test 10/18/24 05:14 Alanine Aminotransferase (ALT) 16 U/L (7-40) Alkaline Phosphatase 98 U/L (46-116) Aspartate Amino Transferase (AST) 20 U/L (13-40) Total Bilirubin 0.5 mg/dL (0.2-1.0) Assessment/Plan Assessment/Plan Right flank pain Rule out UTI History of hypertension Atrial fibrillation Asthma Type 2 diabetes Morbid obesity Gout Hypertension Dyslipidemia Lactic acidosis Hypokalemia Plan IV antibiotics Rocephin Get a urinalysis and culture Resume the home medications Plan discussed with: Patient Date of Service: Oct 18, 2024 Billing Provider: DEB EUBANKS MD Common Visit Codes: [id number] INP/OBS CARE(HIGH) Secondary Visit Codes: [id number] CARE PLAN 30 MINUTES DEB EUBANKS MD Oct 18, 2024 13:20
[2024-10-18 14:01] LABS: Urine Bacteria None Seen /hpf (None Seen)
[2024-10-18 14:16] LABS: Urine Blood Negative /uL (Negative); Urine Clarity Clear (Clear); Urine Color Yellow (Yellow); Urine Protein, UAD Negative (Negative); Urine Specific Gravity 1.018 (1.001-1.035); Urine Squamous Epithelial Cell FEW /hpf (<5); Urine Urobilinogen Normal (Negative); Urine WBC 1 /HPF (0-5)
[2024-10-18 14:36] VITALS: BP 122/86; PULSE 68; RESP 16; TEMP 98.4; O2SAT 91
[2024-10-18] MEDS ORDERED: DEXTROSE (50%) 50ML SYRG IV PRN (16:15)
[2024-10-18] MEDS: ACCU-CHEK COMFORT CURVE STRIP VI SCH (16:45)
[2024-10-18] MEDS: InsuLIN REG 1unit/0.01ml Soln (100units/ml) SC SCH (16:45)
[2024-10-18 17:00] VITALS: BP 107/69; PULSE 67; RESP 16; TEMP 97.8; O2SAT 100
[2024-10-18 20:00] VITALS: PULSE 68; PULSE 74; RESP 18; O2SAT 97
[2024-10-18 21:00] VITALS: BP 120/74; PULSE 68; RESP 18; TEMP 97.6; O2SAT 97
[2024-10-19] VITALS (8 sets, daily range): BP systolic 114–134; BP diastolic 63–84; PULSE 55–68; RESP 17–18; TEMP 96.6–98.1; O2SAT 95–100
[2024-10-19 05:08] LABS: Basophils # (auto) 0.1 10 ^3/uL (0-0.2); Basophils % (auto) 1.3 % (0.0-2.0); Eosinophils # (auto) 0.2 10 ^3/uL (0-0.8); Hematocrit 42.4 % (36.0-46.0); Hemoglobin 13.7 g/dL (12.2-16.2); Lymphocytes # (auto) 1.9 10 ^3/uL (0.4-5.4); Lymphocytes % (auto) 33.7 % (10.0-50.0); Mean Corpuscular Hemoglobin 29.1 pg (28.0-32.0); Mean Corpuscular Hgb Conc. 32.3 g/dL (32.0-36.0); Mean Corpuscular Volume 90.1 fL (80.0-100.0); Monocytes # (auto) 0.6 10 ^3/uL (0-1.3); Monocytes % (auto) 10.2 % (0.0-12.0); Neutrophils # (auto) 2.8 10 ^3/uL (1.6-8.6); Neutrophils % (auto) 50.8 % (37.0-80.0); Nucleated Red Blood Cells % 0.2 %; Platelet Count (auto) 172 10^3/uL (140-450); Red Cell Distribution Width 15.2 % (11.8-14.3); White Blood Cell 5.6 10^3/uL (4.4-10.8)
[2024-10-19 05:31] LABS: Alanine Aminotransferase 13 U/L (7-40); Albumin 4.1 g/dL (3.2-4.8); Alkaline Phosphatase 93 U/L (46-116); Anion Gap 10 (5-15); Aspartate Aminotransferase 15 U/L (0-34); Blood Urea Nitrogen 17 mg/dL (9-23); Calcium 9.2 mg/dL (8.7-10.4); Carbon Dioxide 29 mmol/L (20-31); Glucose 99 mg/dL (74-106); Sodium 137 mmol/L (136-145)
[2024-10-19 05:32] LABS: Bilirubin, Total 0.4 mg/dL (0.2-1.0); Chloride 98 mmol/L (98-107); Potassium 3.3 mmol/L (3.5-5.1)
[2024-10-19] MEDS: SACUBITRIL-VALSARTAN 24mg/26mg TAB PO SCH (10:00)
[2024-10-19] MEDS: POTASSIUM CHL 20 Meq TABLET PO ONE (12:37)
--- NOTE | 2024-10-19 15:18 | DVHPN2 ---
Subjective No new complaints Changes from previous H/P or p: Changes Gastrointestinal: Abdominal Pain Objective Vitals Vital Signs Date Time Temp Pulse Resp B/P (MAP) Pulse Ox O2 Delivery O2 Flow Rate FiO2 10/19/24 12:48 96.6 59 18 114/80 (91) 99 96.6 10/19/24 08:30 Nasal Cannula* 3 32 Intake/Output Intake and Output 10/19/24 07:00 Intake Total 950 ml Output Total 1 ml Balance 949 ml Intake Oral 900 ml IV Total 50 ml Output Urine Total 1 ml # Bowel Movements 1 General Appearance: Alert, Oriented X3, Cooperative, No acute distress Lungs: Clear to auscultation, Normal air movement Cardiovascular: Regular rate, Normal S1, Normal S2 Abdomen: Normal bowel sounds, Soft, No tenderness Extremities: No edema Medications Current Medications Medications Dose Ordered Sig/Ganesh Route Start Time Stop Time Status Last Admin Dose Admin Acetaminophen/ Hydrocodone Bitart 1 tab Q4HP PRN PO 10/18/24 08:00 10/19/24 12:36 1 TAB Ondansetron HCl 4 mg Q4HP PRN IV 10/18/24 08:00 Acetaminophen 650 mg Q6HP PRN PO 10/18/24 08:00 Morphine Sulfate 2 mg Q4HPRN PRN IV 10/18/24 08:15 Nitroglycerin 0.4 mg Q5MINP PRN SL 10/18/24 08:00 Morphine Sulfate 2 mg Q30M PRN IV 10/18/24 08:15 Allopurinol 100 mg DAILY PO 10/18/24 10:00 10/19/24 09:30 100 MG Carvedilol 12.5 mg Q12HR PO 10/18/24 10:00 10/19/24 09:32 12.5 MG Clopidogrel Bisulfate 75 mg DAILY PO 10/18/24 10:00 10/19/24 09:30 75 MG Furosemide 40 mg DAILY PO 10/18/24 10:00 10/19/24 09:31 40 MG Sacubitril/ Valsartan 1 tab BID PO 10/18/24 10:00 Cholecalciferol 2,000 unit DAILY PO 10/18/24 10:00 10/19/24 09:31 2,000 UNIT Patient Own Medication 50 mg BID PO 10/18/24 10:00 Patient Own Medication 20 mg HS PO 10/18/24 22:00 Empaglifozin 10 mg DAILY PO 10/18/24 10:00 10/19/24 09:31 10 MG Ceftriaxone Sodium 50 ml @ 100 mls/hr DAILY@09 IV 10/18/24 10:15 10/19/24 09:46 100 MLS/HR Diagnostic Test (Pha) 1 strip ACHS 10/18/24 17:00 10/19/24 05:51 1 STRIP Insulin Human Regular ACHS SC 10/18/24 17:00 Dextrose 50 ml UD PRN IV 10/18/24 16:15 Laboratory Results Laboratory Tests 10/19/24 04:23 Chemistry Test 10/19/24 04:23 Albumin 4.1 g/dL (3.2-4.8) Calcium Level 9.2 mg/dL (8.7-10.4) Magnesium Level 2.0 mg/dL (1.6-2.6) Total Protein 7.0 g/dL (5.7-8.2) LFT Test 10/19/24 04:23 Alanine Aminotransferase (ALT) 13 U/L (7-40) Alkaline Phosphatase 93 U/L (46-116) Aspartate Amino Transferase (AST) 15 U/L (0-34) Total Bilirubin 0.4 mg/dL (0.2-1.0) Urinalysis Test 10/18/24 13:30 Urine Color Yellow (Yellow) Urine Clarity Clear (Clear) Urine pH 5.0 (5.0-9.0) Urine Specific [place] 1.018 (1.001-1.035) Urine Protein Negative (Negative) Urine Ketones Negative (Negative) Urine Blood Negative /uL (Negative) Urine Nitrite Negative (Negative) Urine Bilirubin Negative (Negative) Urine Urobilinogen Normal mg/dL (Negative) Urine Leukocyte Esterase Negative /uL (Negative) Urine RBC 1 /hpf (0 - 4) Urine Microscopic WBC 1 /HPF (0-5) Urine Squamous Epithelial Cells Few /hpf (<5) Urine Bacteria None seen /hpf (None Seen) Urine Glucose 2+ mg/dL (Normal) H Microbiology Microbiology Date/Time Source Procedure Growth Status 10/18/24 06:23 Blood Blood Culture - Preliminary NO GROWTH AFTER 24 HOURS OF INCUBATION. Resulted Assessment/Plan Assessment/Plan Right flank pain Rule out UTI History of hypertension Atrial fibrillation Asthma Type 2 diabetes Morbid obesity Gout Hypertension Dyslipidemia Lactic acidosis Hypokalemia Plan IV antibiotics Rocephin Get a urinalysis and culture Resume the home medications 10/19/24: No UTI Stop Rocephin Weakness: PT eval Abdominal pain: Of no significance Hypokalemia: Replace Resume the home medications Plan discussed with: Patient My Orders Orders - DEB EUBANKS MD Procedure Category Date Status Time Pt Request For Service PT 10/19/24 Logged 12:25 Date of Service: Oct 19, 2024 Billing Provider: DEB EUBANKS MD Common Visit Codes: [id number] INP/OBS CARE(HIGH) DEB EUBANKS MD Oct 19, 2024 15:18
[2024-10-19] MEDS: MORPHINE SULFATE 4 MG/ML SYR/VIAL IV PRN (20:43)
[2024-10-20] VITALS (9 sets, daily range): BP systolic 106–142; BP diastolic 56–75; PULSE 54–74; RESP 16–17; TEMP 94.4–97.6; O2SAT 96–100
[2024-10-20 08:06] LABS: Chloride 99 mmol/L (98-107); Sodium 139 mmol/L (136-145)
[2024-10-20 08:07] LABS: Anion Gap 9 (5-15); Carbon Dioxide 31 mmol/L (20-31); Potassium 3.5 mmol/L (3.5-5.1)
[2024-10-20 08:12] LABS: BUN/Creatinine Ratio 17.4 (10.0-20.0); Blood Urea Nitrogen 16 mg/dL (9-23); Glucose 99 mg/dL (74-106)
--- NOTE | 2024-10-20 14:46 | DVHPN2 ---
Subjective No new complaints Changes from previous H/P or p: Changes Gastrointestinal: Abdominal Pain Objective Vitals Vital Signs Date Time Temp Pulse Resp B/P (MAP) Pulse Ox O2 Delivery O2 Flow Rate FiO2 10/20/24 13:08 96.6 74 16 106/56 (73) 97 96.6 10/19/24 20:00 Nasal Cannula* 2 28 Intake/Output Intake and Output 10/20/24 07:00 Intake Total 2100 ml Balance 2100 ml Intake Oral 2050 ml IV Total 50 ml # Voids 4 General Appearance: Alert, Oriented X3, Cooperative, No acute distress Lungs: Clear to auscultation, Normal air movement Cardiovascular: Regular rate, Normal S1, Normal S2 Abdomen: Normal bowel sounds, Soft, No tenderness Extremities: No edema Medications Current Medications Medications Dose Ordered Sig/Ganesh Route Start Time Stop Time Status Last Admin Dose Admin Acetaminophen/ Hydrocodone Bitart 1 tab Q4HP PRN PO 10/18/24 08:00 10/19/24 12:36 1 TAB Ondansetron HCl 4 mg Q4HP PRN IV 10/18/24 08:00 Acetaminophen 650 mg Q6HP PRN PO 10/18/24 08:00 Morphine Sulfate 2 mg Q4HPRN PRN IV 10/18/24 08:15 10/20/24 08:54 2 MG Nitroglycerin 0.4 mg Q5MINP PRN SL 10/18/24 08:00 Morphine Sulfate 2 mg Q30M PRN IV 10/18/24 08:15 Allopurinol 100 mg DAILY PO 10/18/24 10:00 10/20/24 08:52 100 MG Carvedilol 12.5 mg Q12HR PO 10/18/24 10:00 10/20/24 08:52 12.5 MG Clopidogrel Bisulfate 75 mg DAILY PO 10/18/24 10:00 10/20/24 08:53 75 MG Furosemide 40 mg DAILY PO 10/18/24 10:00 10/20/24 08:52 40 MG Sacubitril/ Valsartan 1 tab BID PO 10/18/24 10:00 10/20/24 08:52 1 TAB Cholecalciferol 2,000 unit DAILY PO 10/18/24 10:00 10/20/24 08:53 2,000 UNIT Patient Own Medication 50 mg BID PO 10/18/24 10:00 Patient Own Medication 20 mg HS PO 10/18/24 22:00 Empaglifozin 10 mg DAILY PO 10/18/24 10:00 10/19/24 09:31 10 MG Diagnostic Test (Pha) 1 strip ACHS 10/18/24 17:00 10/20/24 12:39 1 STRIP Insulin Human Regular ACHS SC 10/18/24 17:00 Dextrose 50 ml UD PRN IV 10/18/24 16:15 Laboratory Results Laboratory Tests 10/19/24 04:23 10/20/24 07:34 Chemistry Test 10/20/24 07:34 Calcium Level 10.0 mg/dL (8.7-10.4) Urinalysis Test 10/18/24 13:30 Urine Color Yellow (Yellow) Urine Clarity Clear (Clear) Urine pH 5.0 (5.0-9.0) Urine Specific [place] 1.018 (1.001-1.035) Urine Protein Negative (Negative) Urine Ketones Negative (Negative) Urine Blood Negative /uL (Negative) Urine Nitrite Negative (Negative) Urine Bilirubin Negative (Negative) Urine Urobilinogen Normal mg/dL (Negative) Urine Leukocyte Esterase Negative /uL (Negative) Urine RBC 1 /hpf (0 - 4) Urine Microscopic WBC 1 /HPF (0-5) Urine Squamous Epithelial Cells Few /hpf (<5) Urine Bacteria None seen /hpf (None Seen) Urine Glucose 2+ mg/dL (Normal) H Microbiology Microbiology Date/Time Source Procedure Growth Status 10/18/24 13:30 Voided Urine Urine Culture - Preliminary Resulted 10/18/24 06:23 Blood Blood Culture - Preliminary NO GROWTH AFTER 48 HOURS OF INCUBATION. Resulted Assessment/Plan Assessment/Plan Right flank pain Rule out UTI History of hypertension Atrial fibrillation Asthma Type 2 diabetes Morbid obesity Gout Hypertension Dyslipidemia Lactic acidosis Hypokalemia Plan IV antibiotics Rocephin Get a urinalysis and culture Resume the home medications 10/19/24: No UTI Stop Rocephin Weakness: PT eval Abdominal pain: Of no significance Hypokalemia: Replace Resume the home medications 10/20/24: Continue current Tx PT Give more K+ Plan discussed with: Patient Date of Service: Oct 20, 2024 Billing Provider: DEB EUBANKS MD Common Visit Codes: [id number] INP/OBS CARE(HIGH) DEB EUBANKS MD Oct 20, 2024 14:46
[2024-10-20] MEDS: POTASSIUM CHL 20 Meq TABLET PO ONE (18:27)
[2024-10-21] VITALS (8 sets, daily range): BP systolic 94–122; BP diastolic 58–84; PULSE 53–65; RESP 17–18; TEMP 96.4–98.3; O2SAT 95–100
[2024-10-21 08:09] LABS: Anion Gap 7 (5-15); Chloride 101 mmol/L (98-107); Potassium 3.7 mmol/L (3.5-5.1); Sodium 139 mmol/L (136-145)
[2024-10-21 08:10] LABS: Calcium 9.8 mg/dL (8.7-10.4)
[2024-10-21 08:14] LABS: Carbon Dioxide 31 mmol/L (20-31)
[2024-10-21 08:15] LABS: BUN/Creatinine Ratio 17.2 (10.0-20.0); Blood Urea Nitrogen 15 mg/dL (9-23); Glucose 85 mg/dL (74-106)
--- NOTE | 2024-10-21 12:47 | DVHPN2 ---
Subjective Complains of the right flank pain but it is better Changes from previous H/P or p: Changes Gastrointestinal: Abdominal Pain Objective Vitals Vital Signs Date Time Temp Pulse Resp B/P (MAP) Pulse Ox O2 Delivery O2 Flow Rate FiO2 10/21/24 11:35 54 118/68 10/21/24 11:34 18 10/21/24 09:00 98.1 99 98.1 10/21/24 08:05 Nasal Cannula* 2 28 Intake/Output Intake and Output 10/21/24 07:00 Intake Total 2320 ml Balance 2320 ml Intake Oral 2320 ml # Voids 5 General Appearance: Alert, Oriented X3, Cooperative, No acute distress Lungs: Clear to auscultation, Normal air movement Cardiovascular: Regular rate, Normal S1, Normal S2 Abdomen: Normal bowel sounds, Soft, No tenderness Extremities: No edema Medications Current Medications Medications Dose Ordered Sig/Ganesh Route Start Time Stop Time Status Last Admin Dose Admin Acetaminophen/ Hydrocodone Bitart 1 tab Q4HP PRN PO 10/18/24 08:00 10/21/24 05:56 1 TAB Ondansetron HCl 4 mg Q4HP PRN IV 10/18/24 08:00 Acetaminophen 650 mg Q6HP PRN PO 10/18/24 08:00 Morphine Sulfate 2 mg Q4HPRN PRN IV 10/18/24 08:15 10/21/24 10:35 2 MG Nitroglycerin 0.4 mg Q5MINP PRN SL 10/18/24 08:00 Morphine Sulfate 2 mg Q30M PRN IV 10/18/24 08:15 Allopurinol 100 mg DAILY PO 10/18/24 10:00 10/21/24 10:32 100 MG Carvedilol 12.5 mg Q12HR PO 10/18/24 10:00 10/21/24 10:30 12.5 MG Clopidogrel Bisulfate 75 mg DAILY PO 10/18/24 10:00 10/21/24 10:32 75 MG Furosemide 40 mg DAILY PO 10/18/24 10:00 10/21/24 10:31 40 MG Sacubitril/ Valsartan 1 tab BID PO 10/18/24 10:00 10/21/24 10:30 1 TAB Cholecalciferol 2,000 unit DAILY PO 10/18/24 10:00 10/21/24 10:32 2,000 UNIT Patient Own Medication 50 mg BID PO 10/18/24 10:00 Patient Own Medication 20 mg HS PO 10/18/24 22:00 Empaglifozin 10 mg DAILY PO 10/18/24 10:00 10/19/24 09:31 10 MG Diagnostic Test (Pha) 1 strip ACHS 10/18/24 17:00 10/21/24 11:36 1 STRIP Insulin Human Regular ACHS SC 10/18/24 17:00 Dextrose 50 ml UD PRN IV 10/18/24 16:15 Laboratory Results Laboratory Tests 10/19/24 04:23 10/21/24 05:34 Chemistry Test 10/21/24 05:34 Calcium Level 9.8 mg/dL (8.7-10.4) Urinalysis Test 10/18/24 13:30 Urine Color Yellow (Yellow) Urine Clarity Clear (Clear) Urine pH 5.0 (5.0-9.0) Urine Specific [place] 1.018 (1.001-1.035) Urine Protein Negative (Negative) Urine Ketones Negative (Negative) Urine Blood Negative /uL (Negative) Urine Nitrite Negative (Negative) Urine Bilirubin Negative (Negative) Urine Urobilinogen Normal mg/dL (Negative) Urine Leukocyte Esterase Negative /uL (Negative) Urine RBC 1 /hpf (0 - 4) Urine Microscopic WBC 1 /HPF (0-5) Urine Squamous Epithelial Cells Few /hpf (<5) Urine Bacteria None seen /hpf (None Seen) Urine Glucose 2+ mg/dL (Normal) H Microbiology Microbiology Date/Time Source Procedure Growth Status 10/18/24 13:30 Voided Urine Urine Culture - Final Complete 10/18/24 06:23 Blood Blood Culture - Preliminary NO GROWTH AFTER 72 HOURS OF INCUBATION. Resulted Assessment/Plan Assessment/Plan Right flank pain Rule out UTI History of hypertension Atrial fibrillation Asthma Type 2 diabetes Morbid obesity Gout Hypertension Dyslipidemia Lactic acidosis Hypokalemia Plan IV antibiotics Rocephin Get a urinalysis and culture Resume the home medications 10/19/24: No UTI Stop Rocephin Weakness: PT eval Abdominal pain: Of no significance Hypokalemia: Replace Resume the home medications 10/20/24: Continue current Tx PT Give more K+ 10/21/2024: Continue the current management Physical therapy evaluation is pending Consult licensed social worker to resume hospice at home Discharge planning for tomorrow Plan discussed with: Patient Date of Service: Oct 21, 2024 Billing Provider: DEB EUBANKS MD Common Visit Codes: [id number] INP/OBS CARE(MOD) DEB EUBANKS MD Oct 21, 2024 12:47
[2024-10-22] VITALS (7 sets, daily range): BP systolic 106–127; BP diastolic 65–86; PULSE 58–71; RESP 19; TEMP 97.2–99.4; O2SAT 90–100
--- NOTE | 2024-10-22 16:53 | DVHDS2 ---
Discharge Summary Date of Admission Oct 18, 2024 at 07:59 Date of Discharge: Oct 22, 2024 Labs/Diagnostic Data: Laboratory Results Test 10/22/24 11:22 10/21/24 05:34 10/19/24 04:23 10/18/24 13:30 POC Glucose 100 mg/dl (70-106) Sodium Level 139 mmol/L (136-145) Potassium Level 3.7 mmol/L (3.5-5.1) Chloride Level 101 mmol/L (98-107) Carbon Dioxide Level 31 mmol/L (20-31) Anion Gap 7 (5-15) Blood Urea Nitrogen 15 mg/dL (9-23) Creatinine 0.87 mg/dL (0.550-1.02) Glomerular Filtration Rate Calc 75 mL/min (>90) BUN/Creatinine Ratio 17.2 (10.0-20.0) Serum Glucose 85 mg/dL (74-106) Calcium Level 9.8 mg/dL (8.7-10.4) White Blood Count 5.6 10^3/uL (4.4-10.8) Red Blood Count 4.70 10^6/uL (4.0-5.20) Hemoglobin 13.7 g/dL (12.2-16.2) Hematocrit 42.4 % (36.0-46.0) Mean Corpuscular Volume 90.1 fL (80.0-100.0) Mean Corpuscular Hemoglobin 29.1 pg (28.0-32.0) Mean Corpuscular Hemoglobin Concent 32.3 g/dL (32.0-36.0) Red Cell Distribution Width 15.2 % (11.8-14.3) Platelet Count 172 10^3/uL (140-450) Mean Platelet Volume 8.5 fL (6.9-10.8) Neutrophils (%) (Auto) 50.8 % (37.0-80.0) Lymphocytes (%) (Auto) 33.7 % (10.0-50.0) Monocytes (%) (Auto) 10.2 % (0.0-12.0) Eosinophils (%) (Auto) 4.0 % (0.0-7.0) Basophils (%) (Auto) 1.3 % (0.0-2.0) Neutrophils # (Auto) 2.8 10 ^3/uL (1.6-8.6) Lymphocytes # (Auto) 1.9 10 ^3/uL (0.4-5.4) Monocytes # (Auto) 0.6 10 ^3/uL (0-1.3) Eosinophils # (Auto) 0.2 10 ^3/uL (0-0.8) Basophils # (Auto) 0.1 10 ^3/uL (0-0.2) Nucleated Red Blood Cells 0.2 % Magnesium Level 2.0 mg/dL (1.6-2.6) Total Bilirubin 0.4 mg/dL (0.2-1.0) Aspartate Amino Transferase (AST) 15 U/L (0-34) Alanine Aminotransferase (ALT) 13 U/L (7-40) Alkaline Phosphatase 93 U/L (46-116) Total Protein 7.0 g/dL (5.7-8.2) Albumin 4.1 g/dL (3.2-4.8) Urine Color Yellow (Yellow) Urine Clarity Clear (Clear) Urine pH 5.0 (5.0-9.0) Urine Specific [place] 1.018 (1.001-1.035) Urine Protein Negative (Negative) Urine Ketones Negative (Negative) Urine Blood Negative /uL (Negative) Urine Nitrite Negative (Negative) Urine Bilirubin Negative (Negative) Urine Urobilinogen Normal mg/dL (Negative) Urine Leukocyte Esterase Negative /uL (Negative) Urine RBC 1 /hpf (0 - 4) Urine Microscopic WBC 1 /HPF (0-5) Urine Squamous Epithelial Cells Few /hpf (<5) Urine Bacteria None seen /hpf (None Seen) Urine Glucose 2+ mg/dL (Normal) Test 10/18/24 07:24 10/18/24 05:14 Lactic Acid Level 2.4 mmol/L (0.4-2.0) Differential Total Cells Counted 100.0 (100) Neutrophils % (Manual) 41 (37.0-80.0) Band Neutrophils % (Manual) 0 Lymphocytes % (Manual) 43 (10.0-50.0) Monocytes % (Manual) 15 (0-12) Eosinophils % (Manual) 1 (0-7) Basophils % (Manual) 0 (0.0-2.0) Metamyelocytes % (manual) 0 Myelocytes % (Manual) 0 Promyelocytes % (Manual) 0 Blast Cells % (Manual) 0 Reactive Lymphocytes 0 Platelet Estimate Adequate Hemoglobin A1c 5.1 % A1C (<5.7) B-Type Natriuretic Peptide 24.85 pg/mL (0-100) Lipase 32 U/L (12-53) Other Laboratory Tests 10/21/24 05:34 10/19/24 04:23 Brief Hx & Hospital Course: Final diagnoses: Right flank pain UTI ruled out History of hypertension Atrial fibrillation Asthma Type 2 diabetes Morbid obesity Gout Hypertension Dyslipidemia Lactic acidosis Hypokalemia 64 year old female who was on Hospice at home, came with right flank pain UA did not show UTI CT abdomen was negative Her pain resolved She can be discharged home back on hospice Condition at Discharge: Poor Final Diagnosis/Problems List Right flank pain UTI was rule out HTN Atrial fibrillation Asthma Type 2 diabetes Morbid obesity Gout Hypertension Dyslipidemia Lactic acidosis Hypokalemia Discharge Disposition: Hospice - Home SNF Discharge Will this Physician continue t: No Discharge Instruct/Medications Diet: Cardiac 2g Na,low cholest Activity: No Restrictions, As Tolerated Follow Up/Referral: [place] [place] [facility] [place]: "Patient was advised to return to the ER or call 911 if any headaches, dizziness, shortness of breath, chest pain, abdominal pain, bleeding, fevers, or worsening of medical condition. Patient was counseled about treatment plan, medications, possible side effects, patientverbalized understanding. All questions were answered to the best of my ability. This discharge took greater then 30 minutes in planning, reviewing documentation, counseling the patient, and discussing with other team members." ASSESSMENT ASSESSMENT Assessment Right flank pain UTI was rule out HTN Atrial fibrillation Asthma Type 2 diabetes Morbid obesity Gout Hypertension Dyslipidemia Lactic acidosis Hypokalemia Date of Service: Oct 22, 2024 Billing Provider: DEB EUBANKS MD Common Visit Codes: [id number] DISCH DAY >30min DEB EUBANKS MD Oct 22, 2024 16:53
== END 2024-10-22 18:24 | disposition hospice, home (50) | DRG 254 ==
LOC: ER 03:55 → OVERFLOW 07:59 → TELE-CENTR 14:26
PROVIDERS: ADMIT Internal Medicine Geriatric Medicine; ATTEND Internal Medicine Geriatric Medicine
DX: K43.9 Ventral hernia without obstruction or gangrene (principal); E87.20 Acidosis, unspecified; I50.9 Heart failure, unspecified; I11.0 Hypertensive heart disease with heart failure; Z68.43 Body mass index [BMI] 50.0-59.9, adult; E87.6 Hypokalemia; I48.91 Unspecified atrial fibrillation; E11.9 Type 2 diabetes mellitus without complications; J44.89 Other specified chronic obstructive pulmonary disease; E66.01 Morbid (severe) obesity due to excess calories; E78.5 Hyperlipidemia, unspecified; M10.9 Gout, unspecified; F17.210 Nicotine dependence, cigarettes, uncomplicated; K80.20 Calculus of gallbladder without cholecystitis without obstruction; Z98.51 Tubal ligation status; Z86.16 Personal history of COVID-19; Z88.8 Allergy status to other drugs, medicaments and biological substances
CPT/HCPCS: 36415; 71045; 73130; 74176; 80048; 80053; 81001; 82962; 83036; 83605; 83690; 83735; 83880; 85007; 85025; 85027; 87040; 87086; 97163; G0378; Q0162